=== PATIENT | male | born 1970 | race Caucasian/White ===

== ENCOUNTER → 2021-12-29 09:46 | Outpatient (BNVA) | payer OTHER, SELFPAY | PROVIDERS: Visit Provider Physician Assistant | DX: M54.50 Low back pain, unspecified (principal); Z91.81 History of falling | CPT/HCPCS: 72100; 99203 ==

== ENCOUNTER → 2022-01-12 14:34 | Outpatient (BNVA) | payer OTHER, SELFPAY | PROVIDERS: PCP Internal Medicine; Visit Provider Physician Assistant | DX: S39.012D Strain of muscle, fascia and tendon of lower back, subsequent encounter (principal); W18.30XD Fall on same level, unspecified, subsequent encounter | CPT/HCPCS: 99213 ==

== ENCOUNTER 2022-01-25 16:00 | Outpatient (RCR) | payer OTHER, SELFPAY ==
--- NOTE | 2022-01-08 16:54 | MHC.PT.EP ---
[facility] [place] Office [place] Office [place] Office [address] Adrienne Arteaga [address] [phone] F: [phone] F: [phone] F: [phone] F: [phone] Physical Therapy Plan of Care Date of Evaluation: Date of Surgery: Diagnosis: SI/ lumbar strain s/p fall. Assessment: Pt is a 51 y/o male referred to PT for eval and treat of SI/ lumbar strain s/p fall down stairs at work resulting in decreased tolerance for bending forward, AM activities d/t stiffness and pain, performing LE dressing secondary to decreased core strength, decreased trunk ROM as well as decreased posture, increased lumbar tissue tension, and pain. Pt is deemed an appropriate candidate to receive skilled PT in order to address his physical limitations to improve his functional ability. Frequency and Duration: The patient will be seen 2 x / wk x 3 wks. Short Term Goals: improve AM pain to < 2/10; initial: 4/10. initiate HEP. Mcfp Goals: I with HEP. Pt will report no longer painful with walking long distances. Improve core strength to > good (+), initial Good (-) Pt will reports his pain is at least mild and comes and goes; initial: moderate and comes and goes. Treatment Plan: Modalities to reduce pain, spasms and effusion. Manual therapy to restore motion and function. Therapeutic exercise to improve strength and flexibility. Neuromuscular re-education for posture and balance. Therapeutic activities to return to functional activities of daily living. Electronically signed by: Deangelo Paul, PT, DPT. Please sign and return to therapist. Thank you for your referral.
--- NOTE | 2022-01-26 16:37 | MHC.PT.DC ---
[facility] [place] Office [place] Office [place] Office [address] Mallika Arteaga [address] [phone] F: [phone] F: [phone] F: [phone] F: [phone] Physical Therapy Discharge Report Diagnosis: SI/ lumbar strain s/p fall. Date of Surgery: Date of Evaluation: 01/08/22 Date of Discharge: 01/26/22 Treatments to Date: 4 Cancellations to Date: No Shows to Date: Discharge Status: Improved Function Patient Elected to Stop Discharge Summary: Pt left his 4th session reporting he would like to be DC'd from care and walk in the [facility] for exercise. Electronically signed by: Deangelo Paul PT. Please sign and return to therapist. Thank you for your referral.
== END 2022-01-26 16:37 | disposition home or self-care (01) ==
LOC: HO.PTCHIC 16:00
PROVIDERS: PCP Internal Medicine; Visit Provider Physician Assistant
DX: M54.50 Low back pain, unspecified (principal); Z91.81 History of falling
CPT/HCPCS: 97110; 97140; 97161; 97164

== ENCOUNTER → 2023-01-10 13:48 | Outpatient (BNVA) | payer OTHER, SELFPAY | PROVIDERS: PCP Internal Medicine; Visit Provider Physician Assistant Medical | DX: S39.012A Strain of muscle, fascia and tendon of lower back, initial encounter (principal); X50.3XXA Overexertion from repetitive movements, initial encounter | CPT/HCPCS: 72110; 99203 ==

== ENCOUNTER → 2023-01-17 08:30 | Outpatient (BNVA) | payer OTHER, SELFPAY | PROVIDERS: PCP Internal Medicine; Visit Provider Physician Assistant Medical | DX: S39.012A Strain of muscle, fascia and tendon of lower back, initial encounter (principal); X50.3XXA Overexertion from repetitive movements, initial encounter | CPT/HCPCS: 99213 ==

== ENCOUNTER → 2023-01-28 14:09 | Outpatient (BNVA) | payer OTHER, SELFPAY | PROVIDERS: Visit Provider Physician Assistant Medical | DX: S39.012D Strain of muscle, fascia and tendon of lower back, subsequent encounter (principal); X58.XXXD Exposure to other specified factors, subsequent encounter; M54.16 Radiculopathy, lumbar region | CPT/HCPCS: 99213 ==

== ENCOUNTER → 2023-02-05 11:10 | Outpatient (BNVA) | payer OTHER, SELFPAY | PROVIDERS: Visit Provider Physician Assistant Medical | DX: M54.16 Radiculopathy, lumbar region (principal) | CPT/HCPCS: 99213 ==

== ENCOUNTER → 2023-02-14 13:26 | Outpatient (BNVA) | payer OTHER, SELFPAY | PROVIDERS: Visit Provider Physician Assistant Medical | DX: S39.012D Strain of muscle, fascia and tendon of lower back, subsequent encounter (principal); X50.3XXD Overexertion from repetitive movements, subsequent encounter; M54.16 Radiculopathy, lumbar region | CPT/HCPCS: 99213 ==

== ENCOUNTER 2023-03-12 15:00 | Outpatient (RCR) | payer OTHER, SELFPAY ==
--- NOTE | 2023-01-24 15:49 | MHC.PT.EP ---
[facility] [place] Office [place] Office [place] Office [address] Mallika Arteaga [address] [phone] F: [phone] F: [phone] F: [phone] F: [phone] Physical Therapy Plan of Care Date of Evaluation: Date of Surgery: n/a Diagnosis: lumbar strain with spasms Assessment: Patient is a 52 year old male presenting to PT with complaints of pain in his low back. Pt reports onset of pain began 2 weeks ago due to pulling a cart with 500 pounds at work. He presents today with impairments in pain, lumbar ROM, core strength, hip strength, posture, muscle tightness. Pt's current occupation is at [employer], with baseline physical activities including work, ADLs, bending, lifting. Pt expresses prison goal of returning to PLOF, and is motivated to work towards this in PT. Clinical presentation today is most consistent with signs and sx associated with low back pain with possible myofascial contribution and pt will benefit from skilled PT 2 week x 4 weeks to address the following problems and impairments noted upon evaluation: pain, lumbar ROM, hip strength, core strength, posture, muscle tightness. These problems limit the patient with the following functional activities: work, ADLs, bending, lifting. The prescribed treatment plan of care is medically necessary. Co-morbidities of DM were identified and taken into considerations of plan of care. Pt was educated on HEP, role of PT, prognosis, POC. Frequency and Duration: The patient will be seen 2 x week x 4 weeks Short Term Goals: Pt will demonstrate ability to move through lumbar ROM with min to no pain in 2 weeks. Pt will demonstrate improved hip strength MMT by 1/3 grade in 2 weeks for improved lumbopelvic stability. Pt will demonstrate less reports of tightness in his low back in 2 weeks for improved muscle tension. Store Warehouse Associate Goals: Pt will demonstrate improved Francisco score by 10% in 4 weeks for improved functional mobility. Pt will demonstrate ability to work a full day with min to no pain in 4 weeks for return to work at his PLOF. Pt will demonstrate ability to complete ADLs including bending and lifting with min to no pain in 4 weeks for return to PLOF. Treatment Plan: Modalities to reduce pain, spasms and effusion. Manual therapy to restore motion and function. Therapeutic exercise to improve strength and flexibility. Neuromuscular re-education for posture and balance. Therapeutic activities to return to functional activities of daily living. Electronically signed by: Patience Man, PT, DPT, ATC Please sign and return to therapist. Thank you for your referral.
--- NOTE | 2023-03-12 15:59 | MHC.PT.DC ---
[facility] [place] Office [place] Office [place] Office [address] Mallika Arteaga [address] [phone] F: [phone] F: [phone] F: [phone] F: [phone] Physical Therapy Discharge Report Diagnosis: lumbar strain with spasms Date of Surgery: n/a Date of Evaluation: 01/24/23 Date of Discharge: 03/12/23 Treatments to Date: 13 Cancellations to Date: 0 No Shows to Date: 0 Discharge Status: Recommend MD Follow-up Discharge Summary: 03/12/2023: Pt has made some improvements in pain since start of care but appears to have reached a plateau with skilled PT. Over the last several visits he has had no significant change in his functional status or pain levels. At this time max benefits of PT have been provided and skilled PT is no longer indicated at this time. He is waiting to see a specialist which I encouraged him to follow up to be sure this is scheduled for further management of his pain. In the mean time he is recommended to continue with HEP at home to maintain all gains. Electronically signed by: Patience Man, PT, DPT, ATC Please sign and return to therapist. Thank you for your referral.
== END 2023-03-12 16:01 | disposition home or self-care (01) ==
LOC: HO.PTCHIC 15:00
PROVIDERS: Visit Provider Physician Assistant Medical
DX: S39.012D Strain of muscle, fascia and tendon of lower back, subsequent encounter (principal); M62.830 Muscle spasm of back
CPT/HCPCS: 97110; 97140; 97161; 97164

== ENCOUNTER 2023-04-05 09:41 | Emergency (ER) | payer OTHER, SELFPAY ==
--- NOTE | 2023-04-05 09:44 | ED.SYNCOPE ---
HPI - Syncope General Chief Complaint: Syncope Stated Complaint: Syncopal episode per EMS Time Seen by Provider: 04/05/23 09:42 Source: EMS Mode of arrival: EMS Limitations: no limitations History of Present Illness HPI narrative: At work it was hot, got lightheaded and passed out. Normal EKG by EMS, no head strike, got 120cc of IV fluids. Patients prodrome was diaphoresis, sat down and passed out for a minute, did not strike head. complaint: loss of consciousness and felt faint Onset (ago): minute(s) -: second(s) Context: during exertion (light exertion) Related Data Previous Rx's Medication Instructions Recorded cyclobenzaprine 10 mg tablet 10 mg PO BEDTIME PRN muscle spasm 01/10/23 #10 tabs Allergies Allergy/AdvReac Type Severity Reaction Status Date / Time No Known Allergies Allergy Verified 04/05/23 09:49 Review of Systems Review of Systems: Yes all other systems are reviewed and are negative Neurologic: Denies Sensory deficit (Neuro) REPLACED BY [facility] Social History Social History Alcohol intake: current Alcohol intake frequency: holidays/special occasions only Smoked in Last 30 Days: No Use of substances other than those prescribed or required for medical reasons: Yes Substance Use Type: Marijuana Advance Directives: No Physical Exam Vital Signs: Vital Signs: Last Vital Signs Temp 98.2 F 04/05/23 13:48 Pulse 86 04/05/23 13:48 Resp 16 04/05/23 13:48 BP 125/80 04/05/23 13:48 Pulse Ox 96 04/05/23 13:48 O2 Del Method Room Air 04/05/23 13:48 BMI result Body Mass Index 40.9 Const: General: healthy appearing Nutritional Appearance: average body habitus Orientation/consciousness: oriented to person and patient oriented x3 Limitations: no limitations HEENT: Head: Yes normal to inspection Ears: external ears normal General nose exam: Normal external nose present Mouth: Normal oral and palatal mucosa present and oropharynx normal Throat: Yes posterior oropharynx normal Eyes: General: appearance normal, both eyes and all related structures Neck: Other: supple Neck: Yes normal visual inspection Chest: Chest palpation & inspection: normal inspection of the chest Resp: Auscultation: clear to auscultation bilaterally Cardio: Other: 3/6 MONO Jugular venous distension: no JVD Rate: regular rate Rhythm: regular rhythm GI: Inspection: Yes normal to inspection Palpation (GI): Soft to palpation, nontender and No hepatosplenomegaly present Auscultation: normal bowel sounds : General: Yes no CVA tenderness Back/Spine/Pelvis: Back: no CVA tenderness Skin: General skin exam: no rashes or lesions noted Neuro: General: oriented to person and patient oriented x3 Cranial nerves: Yes CN's II-XII intact bilaterally Motor exam (neuro): 5/5 motor strength present throughout Sensory Exam: No Sensory deficit (Neuro) Extrem: General: Yes normal to inspection Psych: Appearance: grossly normal Course Reevaluation(s) Reevaluation #1: patient with flat troponins, clearly no chest pain or shortness of breath prior to feeling lightheaded, looking well will dc home Time: 14:38 Medications Administered Discontinued Medications Generic Name Dose Route Start Last Admin Trade Name Freq PRN Reason Stop Dose Admin Sodium Chloride 250 mls @ 999 mls/hr 04/05/23 10:00 04/05/23 11:53 Ns IV 04/05/23 10:15 Infused .Q16M RAUL Infusion Medical Decision Making Differential Diagnosis Differential Diagnoses: The differential diagnosis associated with the presentation includes (syncope, vasovagal, arrhythmia, CAD, seizure were all considered) Admission/Observation Consideration of admission/observation: Escalation of care including admission/observation considered (52yo male with DM and high cholesterol was considered for admission upon arrival) Lab Data MDM Lab Attestation statement: I reviewed the patient's lab results. (elevated WBC probably from demargination from syncopal event no evidence of infection) 04/05/23 10:34 04/05/23 10:34 Labs: Lab Results 04/05/23 04/05/23 04/05/23 Range/Units 10:34 10:34 10:34 WBC 15.5 H (4.8-10.8) X10*3/uL RBC 5.29 (4.60-5.80) X10*6/uL Hgb 14.6 (14.0-18.0) g/dl Hct 44.2 (42.0-52.0) % MCV 83.6 (80.0-98.0) fL MCH 27.6 (27.0-33.0) pg MCHC 33.0 (31.0-36.0) g/dl RDW 13.3 (11.0-16.0) % Plt Count 153 L (160-400) X10*3/uL MPV 9.4 (9.4-12.4) fL Immature Gran % (Auto) 0.5 H (0.0-0.4) % Neut % (Auto) 87.5 H (45-73) % Lymph % (Auto) 3.6 L (20-40) % [place] % (Auto) 7.8 (2-11) % Eos % (Auto) 0.3 (0-4) % Baso % (Auto) 0.3 (0-2) % Lymph # (Auto) 0.6 L (1.2-4.9) X10*3/uL [place] # (Auto) 1.2 (0.1-1.2) X10*3/uL Eos # (Auto) 0.0 (0.0-0.4) X10*3/uL Baso # (Auto) 0.1 (0.0-0.2) X10*3/uL Abs Immat Gran (auto) 0.08 H (0.00-0.03) X10*3/uL Absolute Neuts (auto) 13.5 H (2.0-8.3) x10*3/uL Absolute Nucleated RBC 0.000 (0.0-0.012) X10*3/uL Nucleated RBC % (auto) 0.0 (0.0-0.2) /100WBC Sodium 139 (135-145) mmol/L Potassium 4.0 (3.3-5.1) mmol/L Chloride 104 (96-108) mmol/L Carbon Dioxide 23 (22-29) mmol/L Anion Gap 16 (12-20) BUN 14 (9-16) mg/dL Creatinine 1.05 (0.5-1.4) mg/dL Estim Creat Clear Calc 105.4 Estimated GFR > 60 Random Glucose 207 H (60-115) mg/dL Calcium 8.7 (8.4-10.2) mg/dL Troponin I High Sens 19.8 (<3.5-35.0) ng/L 04/05/23 Range/Units 13:49 WBC (4.8-10.8) X10*3/uL RBC (4.60-5.80) X10*6/uL Hgb (14.0-18.0) g/dl Hct (42.0-52.0) % MCV (80.0-98.0) fL MCH (27.0-33.0) pg MCHC (31.0-36.0) g/dl RDW (11.0-16.0) % Plt Count (160-400) X10*3/uL MPV (9.4-12.4) fL Immature Gran % (Auto) (0.0-0.4) % Neut % (Auto) (45-73) % Lymph % (Auto) (20-40) % [place] % (Auto) (2-11) % Eos % (Auto) (0-4) % Baso % (Auto) (0-2) % Lymph # (Auto) (1.2-4.9) X10*3/uL [place] # (Auto) (0.1-1.2) X10*3/uL Eos # (Auto) (0.0-0.4) X10*3/uL Baso # (Auto) (0.0-0.2) X10*3/uL Abs Immat Gran (auto) (0.00-0.03) X10*3/uL Absolute Neuts (auto) (2.0-8.3) x10*3/uL Absolute Nucleated RBC (0.0-0.012) X10*3/uL Nucleated RBC % (auto) (0.0-0.2) /100WBC Sodium (135-145) mmol/L Potassium (3.3-5.1) mmol/L Chloride (96-108) mmol/L Carbon Dioxide (22-29) mmol/L Anion Gap (12-20) BUN (9-16) mg/dL Creatinine (0.5-1.4) mg/dL Estim Creat Clear Calc Estimated GFR Random Glucose (60-115) mg/dL Calcium (8.4-10.2) mg/dL Troponin I High Sens 22.9 (<3.5-35.0) ng/L Independent Interpretation I performed an independent interpretation of an: EKG (sinus [address] or twave changes) Chronic Conditions Patient?s care impacted by: Diabetes and Hypertension Discharge Plan Discharge Clinical Impression: Syncope and collapse Patient Disposition: Home, Self-Care Instructions: Syncope (ED) Prescriptions: No Action cyclobenzaprine 10 mg tablet 10 mg PO BEDTIME PRN (Reason: muscle spasm) Qty: 10 0RF Referrals: Adrienne Macias CNP [Primary Care Provider] - 3 days
[2023-04-05 09:47] VITALS: BP 118/62; BP 123/79; PULSE 103; PULSE 90; RESP 16; TEMP 36.4; O2SAT 94; O2SAT 98; BMI 40.9
--- NOTE | 2023-04-05 09:49 | ECG_ITS ---
Test Reason : SYNCOPE Blood Pressure : / mmHG Vent. Rate : 100 BPM Atrial Rate : 100 BPM P-R Int : 146 ms QRS Dur : 090 ms QT Int : 362 ms P-R-T Axes : 021 -15 -09 degrees QTc Int : 466 ms Normal sinus rhythm Possible Left atrial enlargement Left ventricular hypertrophy ( R in aVL , [place] product , Romhilt-Perkins ) Abnormal ECG No previous ECGs available Referred By: Wilner Payne Electronically Signed By:LUIS WILKINSON
[2023-04-05 09:55] VITALS: O2SAT 94
[2023-04-05] MEDS: 0.9 % Sodium Chloride 250 ML 999 ML IV (09:59)
[2023-04-05 10:14] VITALS: BP 130/76; PULSE 99
[2023-04-05 10:17] VITALS: BP 130/83; PULSE 108
[2023-04-05 10:19] VITALS: BP 131/76; PULSE 109
[2023-04-05 10:38] LABS: MANUAL DIFF FLAG NO
[2023-04-05 10:41] LABS: Basophils Absolute Auto 0.1 X10*3/uL (0.0-0.2); Basophils Percent Auto 0.3 % (0-2); Eosinophils Percent Auto 0.3 % (0-4); Hematocrit 44.2 % (42.0-52.0); Hemoglobin 14.6 g/dl (14.0-18.0); Imm Gran Abs Auto 0.08 X10*3/uL (0.00-0.03); Imm Gran Pct Auto 0.5 % (0.0-0.4); Lymphocytes Absolute Auto 0.6 X10*3/uL (1.2-4.9); Lymphocytes Percent Auto 3.6 % (20-40); Mean Corpuscular Hemoglobin 27.6 pg (27.0-33.0); Mean Corpuscular Volume 83.6 fL (80.0-98.0); Mean Platelet Volume 9.4 fL (9.4-12.4); Monocytes Absolute Auto 1.2 X10*3/uL (0.1-1.2); Monocytes Percent Auto 7.8 % (2-11); Neutrophils Absolute Auto 13.5 x10*3/uL (2.0-8.3); Neutrophils Percent Auto 87.5 % (45-73); Platelet Count 153 X10*3/uL (160-400); Red Blood Count 5.29 X10*6/uL (4.60-5.80); Red Cell Distribution Width 13.3 % (11.0-16.0); White Blood Count 15.5 X10*3/uL (4.8-10.8)
[2023-04-05 10:54] LABS: Anion Gap 16 (12-20); Blood Urea Nitrogen 14 mg/dL (9-16); Calcium 8.7 mg/dL (8.4-10.2); Carbon Dioxide 23 mmol/L (22-29); Chloride 104 mmol/L (96-108); Creatinine Clr Calc Pharmacy 105.4; Estimated Glomerular Filt Rate > 60; Glucose Random 207 mg/dL (60-115); Sodium 139 mmol/L (135-145)
[2023-04-05 11:03] LABS: Troponin-I High Sensitivity 19.8 ng/L (<3.5-35.0)
[2023-04-05 13:48] VITALS: BP 125/80; PULSE 86; RESP 16; TEMP 36.8; O2SAT 96
[2023-04-05 14:17] LABS: Troponin-I High Sensitivity 22.9 ng/L (<3.5-35.0)
== END 2023-04-05 15:19 | disposition home or self-care (01) ==
PROVIDERS: Emergency Provider Emergency Medicine; PCP Nurse Practitioner Primary Care
DX: R55 Syncope and collapse (principal)
CPT/HCPCS: 36415; 80048; 84484; 85025; 93005; 96360; 96361; 99284; 99285

== ENCOUNTER → 2023-09-19 13:00 | Outpatient (BNVA) | payer OTHER, SELFPAY | PROVIDERS: PCP Nurse Practitioner Primary Care; Visit Provider Physician Assistant Medical | DX: M54.50 Low back pain, unspecified (principal) | CPT/HCPCS: 99213 ==

== ENCOUNTER → 2023-09-30 13:13 | Outpatient (BNVA) | payer OTHER, SELFPAY | PROVIDERS: PCP Nurse Practitioner Primary Care; Visit Provider Physician Assistant Medical | DX: S39.012D Strain of muscle, fascia and tendon of lower back, subsequent encounter (principal); X50.3XXD Overexertion from repetitive movements, subsequent encounter | CPT/HCPCS: 99213 ==

== ENCOUNTER 2023-10-02 13:18 | Outpatient (AMB) | payer OTHER, SELFPAY ==
--- NOTE | 2023-10-02 13:25 | A.OFFVIS_ITS ---
Intake Vital Signs 10/02/23 13:34 Height 5 ft 9 in Weight 270 lb BMI 39.9 BP 136/78 Blood Pressure Location Lt brachial Position Sitting Respiration 18 Pulse 83 Pulse Source Pulse Oximeter Pulse Oximetry (%) 97 Oxygen Delivery Method Room Air Intake Visit Reasons: Low Back Pain/CONFIRMED Intake Note: patient comes in for initial visit was referred by [facility] work connection. Allergies No Known Allergies Allergy (Verified 10/02/23 13:29) HPI HPI Comments History of Present Illness Details Adam is very pleasant 53 years old gentleman who presents in my office with complains on pain in the right side of his lower back with minimal radiation to the right buttock. 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 He reports that today his pain is 4/10. He is able to sleep normally he can not do activities of daily living he can take care of himself he in is function in normally he is working currently full-time but he reports that he is on light duties without lifting more than 10-12 or 20 lb. He reports that application of heat and cold as well as topical medications make his pain better and movements aggravate his pain. He reports that flexing spine backwards aggravates his pain more than flexing forward. He reports his pain in terms of tissue damage as jumping, flashing, shooting sensation. He was sent to physical therapy and he completed full course of physical therapy and he would need home exercise program. She reports no improvement with his pain. He went for MRI of the lumbar spine and results of MRI dictated as below. He never received any injections in the back. His past medical history significant for dizziness and fainting history of heart murmur and diabetes. His morbidly obese. He had no surgeries in the past. He denies smoking cigarettes drinking alcohol in moderation he drinks caffeinated beverages and he takes cannabis for improvement of sleep. [facility] Social History Alcohol intake: current Alcohol intake frequency: holidays/special occasions only Substance Use Type: Marijuana Review of Systems Const All systems reviewed & are unremarkable except as noted in HPI and below ENT Reports Normal hearing present Card Reports no additional complaints Resp Reports no additional complaints GI Reports no additional complaints Reports no additional complaints Musc Reports as per HPI Neuro Reports Normal hearing present, Denies Abnormal speech present, Denies confusion and Denies Sensory deficit (Neuro) Psych Denies confusion Endo Reports as per HPI Aller/Immun Reports no additional complaints Physical Exam Vital Signs: Last Vital Signs Pulse 83 10/02/23 13:34 Resp 18 10/02/23 13:34 BP 136/78 10/02/23 13:34 Pulse Ox 97 10/02/23 13:34 Oxygen Delivery Method Room Air 10/02/23 13:34 BMI result Body Mass Index 39.9 Const General: no acute distress; No confusion Nutritional Appearance: obese morbidly obese Orientation/consciousness: patient oriented x3 and No confusion Eyes General: appearance normal, both eyes and all related structures Pupils: Equal, round and reactive pupils present EOM: EOMs intact bilaterally Neck Neck: Yes full ROM Chest Chest palpation & inspection: normal inspection of the chest Resp Effort & Inspection: normal respiratory effort, able to speak in complete sentences, normal respiratory pattern, no audible wheezes and no cough Cardio Jugular venous distension: no JVD GI Inspection: Yes normal to inspection Back/Spine/Pelvis Other: Both flexing backwards and flexing forward aggravate his pain. Tenderness of palpation paraspinal spinal region of the lowest lumbar spine. He reports mobility limitation in the lumbar spine. Reports stiffness in the lumbar spine. Valsalva maneuver does not aggravate his pain. SLR is negative for pain increase. Greg test may be positive on the right however neither pelvic compression test pelvis destruction test Stinchfield test or Gaenslen test negative for pain increase. Loading test is positive mostly on the right. He denies incontinence with urine and/or stool. He denies pelvic organ dysfunction. Neuro General: patient oriented x3, gait normal and No confusion Cranial nerves: Yes CN's II-XII intact bilaterally, Yes Equal, round and reactive pupils present, Yes Normal hearing present and Yes Ability to bilaterally elevate shoulders present Speech: No Abnormal speech present Gait exam (Neuro): Normal gait present Motor exam (neuro): 5/5 motor strength present throughout Sensory Exam: No Sensory deficit (Neuro) Extrem General: No pedal edema Psych Speech and movement: Normal speech and movement present Affect: normal affect Attitude: cooperative Thought process: Normal thought process present Thought content: Normal thought content present Insight: Good insight present (Psych) Judgement: Good judgement present (Psych) Results Reviewed Results Reviewed: MRI of the lumbar spine [facility] 02/08/2023. Findings: There is transitional anatomy L5 appears partially sacralized on the right. Alignment is normal. Vertebral body heights are preserved. Degenerative endplate osteophytes are present at multiple levels as well as minimal Modic type 1 and type 2 signal changes at the anterior aspect of the L1- L2 endplates. There is disc desiccation and mild loss of intervertebral disc height at L3-L4 and L4-5. Rudimentary disc at L5-S1. Multilevel facet arthropathy. Conus the conus is normal in signal and contour with normal level of termination at L1. Paraspinal tissues are unremarkable. L1-L2 no significant spinal canal or neural foraminal stenosis L2-L3 no single canal or neural foraminal stenosis. L3-L4 deformities bulge and small central protrusion component. Facet arthropathy. Mild spinal canal narrowing. Mild bilateral neural foraminal narrowing. L4-5 disc bulge and facet arthropathy no significant central canal stenosis mild bilateral neural foraminal narrowing. L5-S1: Left-sided facet arthropathy. No significant canal stenosis or neural foraminal narrowing Assessment & Plan Assessment & Plan (1) Spondylosis of lumbar region without myelopathy or radiculopathy: Code(s): M47.816 - Spondylosis without myelopathy or radiculopathy, lumbar region (2) Chronic pain syndrome: Code(s): G89.4 - Chronic pain syndrome Plan It seem to me that most significant feature of this patient's pathology is facet joint arthropathy. I offered him diagnostic medial branch block. Considering his transitional anatomy I will do L2-L3 and L4 medial branches block on the right. With proper report of pain relief we can offer him more definitive ways of treatment of his back pain. Patient Instructions: I here by testify that I spent 48 minutes in conversation with this patient as well as planning his care evaluating his previous records and diagnostic studies planning future injections and organizing this note. Coding Level of Care Code New Pt Level 4 (86638) Diagnoses Spondylosis of lumbar region without myelopathy or radiculopathy M47.816 Chronic pain syndrome G89.4
[2023-10-02 13:34] VITALS: BP 136/78; PULSE 83; RESP 18; O2SAT 97; BMI 39.9
== END 2023-10-02 14:18 | disposition home or self-care (01) ==
PROVIDERS: PCP Nurse Practitioner Primary Care; Visit Provider Anesthesiology
DX: M47.816 Spondylosis without myelopathy or radiculopathy, lumbar region (principal); G89.4 Chronic pain syndrome
CPT/HCPCS: 99204

== ENCOUNTER → 2023-10-02 13:18 | Outpatient (BNVA) | payer OTHER, SELFPAY | PROVIDERS: PCP Nurse Practitioner Primary Care; Visit Provider Anesthesiology | DX: M47.816 Spondylosis without myelopathy or radiculopathy, lumbar region (principal); G89.4 Chronic pain syndrome | CPT/HCPCS: 99202 ==

== ENCOUNTER → 2023-10-23 13:12 | Outpatient (BNVA) | payer OTHER, SELFPAY | PROVIDERS: PCP Nurse Practitioner Primary Care; Visit Provider Physician Assistant Medical | DX: M51.27 Other intervertebral disc displacement, lumbosacral region (principal) | CPT/HCPCS: 99213 ==

== ENCOUNTER 2023-11-05 06:10 | Outpatient (REF) | payer OTHER, SELFPAY ==
--- NOTE | ~2023-11-05 | FL_ITS ---
EXAMINATION: XR FLUOROSCOPY WITH IMAGES CLINICAL INFORMATION: Spondylosis without myelopathy or radiculopathy, lumbar region. COMPARISON: None available. TECHNIQUE: Fluoroscopy Supervised By: Dr. Horacio Streeter. Fluoroscopy Time: 0.4 minutes. Cumulative Dose: 19.3 mGy. DAP: 0.292 Gycm2. Images: 3. FINDINGS: Images demonstrate needle placement and contrast injection adjacent to the right lateral L3, L4 and L5 vertebrae. FL/FL guidance in treatment room IMPRESSION: Fluoroscopic guidance for pain management procedure.
== END 2023-11-05 06:11 | disposition home or self-care (01) ==
LOC: CF 06:10
PROVIDERS: Visit Provider Anesthesiology
DX: M47.816 Spondylosis without myelopathy or radiculopathy, lumbar region (principal); G89.4 Chronic pain syndrome
CPT/HCPCS: 64493; 64494; J2795; Q9967

== ENCOUNTER 2023-11-05 12:57 | Outpatient (AMB) | payer OTHER, SELFPAY ==
--- NOTE | 2023-11-05 13:05 | A.OFFVIS_ITS ---
Intake Vital Signs 11/05/23 13:59 11/05/23 14:01 Height 5 ft 9 in 5 ft 9 in Weight 270 lb 270 lb BMI 39.9 39.9 BP 136/84 122/80 Blood Pressure Location Lt brachial Lt brachial Position Sitting Sitting Respiration 18 18 Pulse 93 90 Pulse Source Pulse Oximeter Pulse Oximeter Pulse Oximetry (%) 96 96 Oxygen Delivery Method Room Air Room Air Comment pre-op post-op Intake Visit Reasons: R DX L2-L3-L4 MBB/LOCAL Allergies No Known Allergies Allergy (Verified 11/05/23 14:02) PFSH Social History Alcohol intake: current Alcohol intake frequency: holidays/special occasions only Substance Use Type: Marijuana Physical Exam Vital Signs: Last Vital Signs Pulse 90 11/05/23 14:01 Resp 18 11/05/23 14:01 BP 122/80 11/05/23 14:01 Pulse Ox 96 11/05/23 14:01 Oxygen Delivery Method Room Air 11/05/23 14:01 BMI result Body Mass Index 39.9 Assessment & Plan Assessment & Plan (1) Spondylosis of lumbar region without myelopathy or radiculopathy: Code(s): M47.816 - Spondylosis without myelopathy or radiculopathy, lumbar region Plan: Diagnostic medial branch block L2-L3 L4 on the right. ? ?Informed consent was explained to the patient. All questions were explained and? answered.? The patient was taken inside the operating room where she was positioned prone on the operating table. Time-out was performed delineating correct site, side, the nature of the procedure, patient's allergy, . All operating room staff was participating in OR time-out procedure. ? ? The lower back was prepped with ChloraPrep and draped with sterile towels.? C- arm was brought over the operating field and sq picture of L3, L4-, L5 vertebra delineated on the screen.? Point of interest were delineated as confluence of superior articular process of L3, L4 and L5 vertebra on the right with corresponding transverse processes .? The projection of the point of interest to the skin were injected with the small amount of local anesthetic lidocaine 2% 1- 1.5 cc.? After that 22 gauge 3.5 inch spinal needle was driven sequentially to the points of interest in tunnel vision fashion. After needles gently contacted the bone at the point of interests the needle was injected with small amount of the contrast.? The injection of the contrast did not demonstrate any intravascular or intrathecal spread of the contrast.? After that injection of the? ropivacaine 0.5%-1cc was performed at each needle location.??after that the needles were removed and Bandaids were applied. ? Upon completion of the injections? needle was? removed and sterile Band-Aids were applied.? The patient tolerated procedure very well. (2) Chronic pain syndrome: Code(s): G89.4 - Chronic pain syndrome Plan It seem to me that most significant feature of this patient's pathology is facet joint arthropathy. I offered him diagnostic medial branch block. Considering his transitional anatomy I will do L2-L3 and L4 medial branches block on the right. With proper report of pain relief we can offer him more definitive ways of treatment of his back pain. Orders: Orders FL guidance in treatment room 11/05/23 M47.816 - Spondylosis without myelopathy or radiculopathy, lumbar region Coding Level of Care Code Procedure Only Diagnoses Spondylosis of lumbar region without myelopathy or radiculopathy M47.816 Chronic pain syndrome G89.4
[2023-11-05 13:59] VITALS: BP 136/84; PULSE 93; RESP 18; O2SAT 96; BMI 39.9
[2023-11-05 14:01] VITALS: BP 122/80; PULSE 90; RESP 18; O2SAT 96; BMI 39.9
== END 2023-11-05 13:46 | disposition home or self-care (01) ==
LOC: HO.PMCPRC 12:57
PROVIDERS: PCP Nurse Practitioner Primary Care; Visit Provider Anesthesiology
DX: M47.816 Spondylosis without myelopathy or radiculopathy, lumbar region (principal); G89.4 Chronic pain syndrome
CPT/HCPCS: 64493; 64494

== ENCOUNTER 2023-11-07 09:38 | Outpatient (AMB) | payer OTHER, SELFPAY ==
--- NOTE | 2023-11-07 09:41 | MHC.OFFVIS ---
Intake Vital Signs 11/07/23 09:47 Height 5 ft 9 in Weight 276 lb 4 oz BMI 40.8 BP 132/76 Blood Pressure Location Lt brachial Position Sitting Respiration 18 Pulse 89 Pulse Source Pulse Oximeter Pulse Oximetry (%) 97 Oxygen Delivery Method Room Air Intake Visit Reasons: R DX L2-L3-L4 MBB 11/05/23/confirmed Allergies No Known Allergies Allergy (Verified 11/07/23 09:47) HPI HPI Comments History of Present Illness Details Adam is back in my office after diagnostic medial branch block L2-L3 L4 on the right to treat spondylosis of lumbar spine. Before the procedure he had pain 5/10. After the procedure he had pain 1/10 to 2/10 maximum. He performed most painful maneuvers which usually aggravates his pain. He felt only numbness in his back and not severe pain. He was walking picking up heavy stuff and performing ladder climbing with great results. She still feels some pain relief at this time 2 days after the procedure. He reported that he had 5 hours of almost complete pain relief immediately after the procedure. It corresponds well to the time ropivacaine local anesthetic which was injected into his back longevity of action. Prolonged and difficult discussion ensued today to discuss options of the treatment. I carefully explained to the patient radiofrequency ablation of the injected medial branches on the right. I also explained to him Sprint PNS ambulation to treat his pain. He was asking me questions whether not this is ultimate solution of his problem. I told him that the ultimate solution for his problem could be aggressive physical therapy and home exercise program, as well as I aerobic exercise, as well as diet and losing weight. The patient is not sure if he has enough of that time of work to participate in Sprint PNS. He is not sure if he is willing to go for RFA procedure. He will think about it and he will give me a call. If he wants to take physical therapy option I will order physical therapy. He requested me to write a letter to his a job in explanation of what time he needs off of work. Prior: complains on pain in the right side of his lower back with minimal radiation to the right buttock. 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 He reports that today his pain is 4/10. He is able to sleep normally he can not do activities of daily living he can take care of himself he in is function in normally he is working currently full-time but he reports that he is on light duties without lifting more than 10-12 or 20 lb. He reports that application of heat and cold as well as topical medications make his pain better and movements aggravate his pain. He reports that flexing spine backwards aggravates his pain more than flexing forward. She reports no improvement with his pain. He went for MRI of the lumbar spine and results of MRI dictated as below. He never received any injections in the back. His past medical history significant for dizziness and fainting history of heart murmur and diabetes. His morbidly obese. He had no surgeries in the past. He denies smoking cigarettes drinking alcohol in moderation he drinks caffeinated beverages and he takes cannabis for improvement of sleep. [facility] Social History Alcohol intake: current Alcohol intake frequency: holidays/special occasions only Substance Use Type: Marijuana Review of Systems Const All systems reviewed & are unremarkable except as noted in HPI and below ENT Reports Normal hearing present Neuro Reports Normal hearing present, Denies Abnormal speech present, Denies confusion and Denies Sensory deficit (Neuro) Psych Denies confusion Physical Exam Vital Signs: Last Vital Signs Pulse 89 11/07/23 09:47 Resp 18 11/07/23 09:47 BP 132/76 11/07/23 09:47 Pulse Ox 97 11/07/23 09:47 Oxygen Delivery Method Room Air 11/07/23 09:47 BMI result Body Mass Index 40.8 Const General: no acute distress; No confusion Nutritional Appearance: obese morbidly obese Orientation/consciousness: patient oriented x3 and No confusion Eyes General: appearance normal, both eyes and all related structures Pupils: Equal, round and reactive pupils present EOM: EOMs intact bilaterally Neck Neck: Yes full ROM Chest Chest palpation & inspection: normal inspection of the chest Resp Effort & Inspection: normal respiratory effort, able to speak in complete sentences, normal respiratory pattern, no audible wheezes and no cough Cardio Jugular venous distension: no JVD GI Inspection: Yes normal to inspection Back/Spine/Pelvis Other: Both flexing backwards and flexing forward aggravate his pain. Tenderness of palpation paraspinal spinal region of the lowest lumbar spine. He reports mobility limitation in the lumbar spine. Reports stiffness in the lumbar spine. Valsalva maneuver does not aggravate his pain. SLR is negative for pain increase. Greg test may be positive on the right however neither pelvic compression test pelvis destruction test Stinchfield test or Gaenslen test negative for pain increase. Loading test is positive mostly on the right. He denies incontinence with urine and/or stool. He denies pelvic organ dysfunction. Neuro General: patient oriented x3, gait normal and No confusion Cranial nerves: Yes CN's II-XII intact bilaterally, Yes Equal, round and reactive pupils present, Yes Normal hearing present and Yes Ability to bilaterally elevate shoulders present Speech: No Abnormal speech present Gait exam (Neuro): Normal gait present Motor exam (neuro): 5/5 motor strength present throughout Sensory Exam: No Sensory deficit (Neuro) Extrem General: No pedal edema Psych Speech and movement: Normal speech and movement present Affect: normal affect Attitude: cooperative Thought process: Normal thought process present Thought content: Normal thought content present Insight: Good insight present (Psych) Judgement: Good judgement present (Psych) Results Reviewed Results Reviewed: MRI of the lumbar spine [facility] 02/08/2023. Findings: There is transitional anatomy L5 appears partially sacralized on the right. Alignment is normal. Vertebral body heights are preserved. Degenerative endplate osteophytes are present at multiple levels as well as minimal Modic type 1 and type 2 signal changes at the anterior aspect of the L1-L2 endplates. There is disc desiccation and mild loss of intervertebral disc height at L3-L4 and L4-5. Rudimentary disc at L5-S1. Multilevel facet arthropathy. Conus the conus is normal in signal and contour with normal level of termination at L1. Paraspinal tissues are unremarkable. L1-L2 no significant spinal canal or neural foraminal stenosis L2-L3 no single canal or neural foraminal stenosis. L3-L4 deformities bulge and small central protrusion component. Facet arthropathy. Mild spinal canal narrowing. Mild bilateral neural foraminal narrowing. L4-5 disc bulge and facet arthropathy no significant central canal stenosis mild bilateral neural foraminal narrowing. L5-S1: Left-sided facet arthropathy. No significant canal stenosis or neural foraminal narrowing Assessment & Plan Assessment & Plan (1) Spondylosis of lumbar region without myelopathy or radiculopathy: Code(s): M47.816 - Spondylosis without myelopathy or radiculopathy, lumbar region (2) Chronic pain syndrome: Code(s): G89.4 - Chronic pain syndrome Plan On the MRI patient has Modic type 1 changes but it is only at L1 and L2 vertebra as. I do not think that this is good pain generator. Performance of the medial branch block L2-L3 L4 on the right resulted in an significant pain relief which could be indicative that spondylosis of the lumbar spine is actual pain generator for this patient. Prolonged and difficult conversation describing options of his treatment was held today. The patient was given options of RFA L2-L3 L4 on the right versus PNS L3 possible for possible L2 on the right sprint versus physical therapy aerobic exercises and diet lose weight. Patient reported that he will think about it. He will give us a call about his decision. We will give him a letter to his work with explanation of his options. Patient Instructions: I here by testify that I spent 35 minutes in conversation with this patient as well as evaluating his prior records and prior diagnostic studies as well as planning his care and organizing this note. Coding Level of Care Code Est Pt Level 4 (86739) Diagnoses Spondylosis of lumbar region without myelopathy or radiculopathy M47.816 Chronic pain syndrome G89.4
[2023-11-07 09:47] VITALS: BP 132/76; PULSE 89; RESP 18; O2SAT 97; BMI 40.8
== END 2023-11-07 10:13 | disposition home or self-care (01) ==
PROVIDERS: PCP Nurse Practitioner Primary Care; Visit Provider Anesthesiology
DX: G89.4 Chronic pain syndrome (principal); M47.816 Spondylosis without myelopathy or radiculopathy, lumbar region
CPT/HCPCS: 99214

== ENCOUNTER → 2023-11-07 09:38 | Outpatient (BNVA) | payer OTHER, SELFPAY | PROVIDERS: PCP Nurse Practitioner Primary Care; Visit Provider Anesthesiology | DX: G89.4 Chronic pain syndrome (principal); M47.816 Spondylosis without myelopathy or radiculopathy, lumbar region; Z98.890 Other specified postprocedural states | CPT/HCPCS: 99212 ==

== ENCOUNTER → 2023-11-13 13:39 | Outpatient (BNVA) | payer OTHER, SELFPAY | PROVIDERS: PCP Nurse Practitioner Primary Care; Visit Provider Physician Assistant Medical | DX: M51.16 Intervertebral disc disorders with radiculopathy, lumbar region (principal) | CPT/HCPCS: 99213 ==

== ENCOUNTER → 2023-12-18 11:17 | Outpatient (BNVA) | payer OTHER, SELFPAY | PROVIDERS: PCP Nurse Practitioner Primary Care; Visit Provider Physician Assistant Medical | DX: M51.16 Intervertebral disc disorders with radiculopathy, lumbar region (principal) | CPT/HCPCS: 99213 ==

== ENCOUNTER 2024-05-14 09:53 | Outpatient (AMB) | payer OTHER, SELFPAY ==
[2024-05-14 10:00] VITALS: BP 130/76; PULSE 76; TEMP 36.6
--- NOTE | 2024-05-14 10:00 | AM.OFFWIN_ITS ---
Intake Vital Signs 05/14/24 10:00 Height 5 ft 9 in BP 130/76 Blood Pressure Location Rt brachial Position Sitting Pulse 76 Pulse Source Pulse Oximeter Temp 97.9 F Temp Source Oral Intake Visit Reasons: [employer] Diff breathing, dizzy, hard to take in breaths Patient Tobacco Use Status: Never used Tobacco Allergies No Known Allergies Allergy (Verified 05/14/24 10:04) Do you need a note to return to daycare/school/sports/work: No HPI HPI Comments History of Present Illness Details Patient is a 53-year-old male complaining of the inability to take a deep breath. He states this has been a chronic issue going on for years and his former primary care doctor told him it was due to him having COVID. He states it is getting worse right now. He also states he has periods of dizziness that resolve on their own without any intervention. He admits to some head congestion and a bit of a sore throat. He denies any fevers or cough. He also notes that he has atrial fibrillation and is having an ablation on June 03. He states he has been taking all of his medications for his atrial fibrillation on a daily basis. He denies ever being diagnosed with any lung disease. 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 [facility] Social History Alcohol intake: current Alcohol intake frequency: holidays/special occasions only Patient Tobacco Use Status: Never used Tobacco Substance Use Type: Marijuana Review of Systems Const All systems reviewed & are unremarkable except as noted in HPI and below Physical Exam Vital Signs: Last Vital Signs Temp 97.9 F 05/14/24 10:00 Pulse 76 05/14/24 10:00 BP 130/76 05/14/24 10:00 Const General: cooperative, healthy appearing, comfortable, no acute distress and well developed Orientation/consciousness: patient oriented x3 Limitations: no limitations HEENT Head: Yes normal to inspection Ears: unable to visualize TM bilaterally (Blocked with cerumen; once cleared, TMs are normal bilaterally) General nose exam: Normal external nose present and Normal nares present Face and sinus: Yes normal facial exam and Yes sinuses nontender Throat: Yes posterior oropharynx abnormal (Slight erythema) Eyes General: appearance normal, both eyes and all related structures Neck Neck: Yes normal visual inspection and Yes full ROM Resp Effort & Inspection: normal respiratory effort and able to speak in complete sentences Auscultation: clear to auscultation bilaterally Cardio Rate: regular rate Rhythm: regular rhythm Heart sounds: normal S1 and S2 GI Inspection: Yes normal to inspection Palpation (GI): Soft to palpation and nontender Skin General skin exam: no rashes or lesions noted Neuro General: patient oriented x3 Extrem General: Yes normal to inspection Office Procedures Cerumen Removal Details: Attempted to clear right ear but unable to From which ear canal was the cerumen removed: left Removal: otoscope w/curette Notes: patient tolerated procedure well, no complications and ear canal clear (left ear) [id number] Wax Removal by Spoon/Curette Assessment & Plan Assessment & Plan (1) Shortness of breath: Code(s): R06.02 - Shortness of breath Plan: Will get chest x-ray but likely will be negative, sent inhaler to pharmacy and recommended if the inhaler helps that he should follow up with his PCP and perhaps get some pulmonary function tests. With his job, he is constantly expo sed to chemicals on a daily basis for many years. Did educate patient on how to check his heart rate and if he feels dizzy, he should check his heart rate and call 911, this could be likely due to his atrial fibrillation and would require immediate medical attention. (2) Impacted cerumen of both ears: Code(s): H61.23 - Impacted cerumen, bilateral Plan: Able to remove cerumen in the left ear, unable to remove it in the right ear, educated patient on using Debrox drops Plan See above Orders: Orders XR chest 2V Today R06.02 - Shortness of breath Medications: New albuterol sulfate 90 mcg/actuation 2 puffs inhalation Q6H PRN 8.5 grams 0RF shortness of breath or wheezing Coding Level of Care Code Est Pt Level 4 (21036) Diagnoses Shortness of breath R06.02 Impacted cerumen of both ears H61.23 CPT Codes Office Procedure - CPT: 02947-Rmm Wax Removal by Spoon/Curette ([id number])
== END 2024-05-14 11:01 | disposition home or self-care (01) ==
PROVIDERS: PCP Nurse Practitioner Primary Care; Visit Provider Physician Assistant
DX: H61.23 Impacted cerumen, bilateral (principal)
CPT/HCPCS: 69210; 99214

== ENCOUNTER 2024-05-14 10:50 | Outpatient (REF) | payer OTHER, SELFPAY ==
--- NOTE | ~2024-05-14 | XR_ITS ---
EXAMINATION: XR CHEST CLINICAL INFORMATION: Shortness of breath COMPARISON: None available. TECHNIQUE: 2 views of the chest were obtained. FINDINGS: Heart size upper limits of normal. There is no evidence of gross CHF. No consolidations or lung masses. No pleural effusions are seen. There is bronchial thickening present with some reticular nodular densities more prominent at the lung bases. Degenerative changes are present spine. XR/XR chest 2V IMPRESSION: Bronchial thickening with reticular nodular densities at the lung bases. No focal consolidation.
== END 2024-05-14 10:51 | disposition home or self-care (01) ==
LOC: HO.HMGCX 10:50
PROVIDERS: PCP Internal Medicine; Visit Provider Physician Assistant
DX: R06.02 Shortness of breath (principal)
CPT/HCPCS: 71046

== ENCOUNTER 2024-05-25 08:21 | Inpatient (IN) | payer OTHER, SELFPAY ==
[2024-05-25] VITALS (24 sets, daily range): BP systolic 93–132; BP diastolic 51–95; PULSE 68–159; RESP 14–26; TEMP 36.2–36.7; O2SAT 88–94; BMI 38.3
--- NOTE | 2024-05-25 | ECG_ITS ---
Test Reason : cp Blood Pressure : / mmHG Vent. Rate : 156 BPM Atrial Rate : 326 BPM P-R Int : 000 ms QRS Dur : 092 ms QT Int : 326 ms P-R-T Axes : 000 056 249 degrees QTc Int : 525 ms Atrial flutter with variable A-V block Moderate voltage criteria for LVH, may be normal variant ( Sokolow-De Luna , Crescent product ) Abnormal ECG When compared with ECG of 25-MAY-2024 08:34, Atrial flutter has replaced Sinus rhythm Vent. rate has increased BY 60 BPM Referred By: Luis Wilkinson Electronically Signed By:LUIS WILKINSON
--- NOTE | ~2024-05-25 | XR_ITS ---
EXAMINATION: XR CHEST CLINICAL INFORMATION: Chest pain, dyspnea COMPARISON: Chest x-ray on 05/14/2024 TECHNIQUE: 2 views of the chest were obtained. FINDINGS: pulmonary vascularity. LUNGS: Bilateral patchy perihilar infiltrates are present. Diffuse vascular and interstitial prominence is seen in bilateral lungs. Asymmetric density effacing the left lateral and posterior costophrenic angles is seen consistent with left pleural effusion. No pneumothorax is seen. BONES: Bony skeleton is intact. XR/XR chest 2V IMPRESSION: 1. Interval development of congestive heart failure, pulmonary edema pattern superimposed on interstitial edema. 2. Interval development of small Left pleural effusion.
--- NOTE | ~2024-05-25 | CT_ITS ---
EXAMINATION: CT CHEST WITHOUT CONTRAST CLINICAL INFORMATION: Dyspnea and hypoxia COMPARISON: Chest radiograph yesterday: Interval development of congestive heart failure, pulmonary edema pattern superimposed on interstitial edema. Interval development of small Left pleural effusion. TECHNIQUE: Multidetector volumetric CT imaging of the chest was done. Axial MIP volume rendering provided. Sagittal and coronal reformatted images were obtained. This CT examination was performed using dose optimization techniques as appropriate, variously including the following: *Automated exposure control *Adjustment of mA and/or kV according to patient size (this includes techniques or standardized protocols for targeted exams where dose is matched to indication/reason for exam; i.e. extremities or head) *Use of iterative reconstruction technique DLP: 3 7 mGy-cm FINDINGS: LUNGS AND PLEURA: There are small to moderate sized bilateral pleural effusions present with bibasilar atelectasis. There is diffuse bronchial wall thickening and interstitial prominence. Brittany B lines are present. Some mild perihilar groundglass infiltrates are present, left significantly greater than the right. MEDIASTINUM: Mild cardiac enlargement CORONARY ARTERY CALCIFICATION: Marked AXILLA: No lymphadenopathy. UPPER ABDOMEN: Unremarkable. OSSEOUS STRUCTURES: Unremarkable. CT/CT chest wo IV con IMPRESSION: Findings are consistent with CHF with interstitial edema and bilateral pleural effusions. Fleischner guidelines were followed.
--- NOTE | 2024-05-25 08:32 | ECG_ITS ---
Test Reason : CHESTPAIN Blood Pressure : / mmHG Vent. Rate : 096 BPM Atrial Rate : 096 BPM P-R Int : 144 ms QRS Dur : 092 ms QT Int : 000 ms P-R-T Axes : 020 039 049 degrees QTc Int : 000 ms Sinus rhythm Premature supraventricular complexes Moderate voltage criteria for LVH, may be normal variant ( Sokolow-De Luna , [place] product ) Abnormal ECG When compared with ECG of 05-APR-2023 10:23, Criteria for Inferior infarct are no longer Present T wave inversion no longer evident in Inferior leads Nonspecific T wave abnormality now evident in Lateral leads Referred By: Generic ED Physician Electronically Signed By:LUIS WILKINSON
[2024-05-25 08:49] LABS: MANUAL DIFF FLAG NO
[2024-05-25 08:51] LABS: Basophils Absolute Auto 0.1 X10*3/uL (0.0-0.2); Basophils Percent Auto 0.5 % (0-2); Eosinophils Absolute Auto 0.2 X10*3/uL (0.0-0.4); Eosinophils Percent Auto 1.8 % (0-4); Hematocrit 48.7 % (42.0-52.0); Imm Gran Abs Auto 0.03 X10*3/uL (0.00-0.03); Imm Gran Pct Auto 0.3 % (0.0-0.4); Lymphocytes Absolute Auto 0.9 X10*3/uL (1.2-4.9); Lymphocytes Percent Auto 9.7 % (20-40); Mean Corpuscular HGB Conc 32.9 g/dl (31.0-36.0); Mean Corpuscular Hemoglobin 28.3 pg (27.0-33.0); Mean Platelet Volume 9.7 fL (9.4-12.4); Monocytes Absolute Auto 0.7 X10*3/uL (0.1-1.2); Monocytes Percent Auto 7.4 % (2-11); Neutrophils Absolute Auto 7.7 x10*3/uL (2.0-8.3); Neutrophils Percent Auto 80.3 % (45-73); Platelet Count 185 X10*3/uL (160-400); Red Blood Count 5.66 X10*6/uL (4.60-5.80); White Blood Count 9.6 X10*3/uL (4.8-10.8)
[2024-05-25 09:11] LABS: Alanine Aminotransferase 40 U/L (0-40); Alkaline Phosphatase 54 U/L (39-117); Anion Gap 14 (12-20); Aspartate Amino Transferase 29 U/L (5-37); Bilirubin Total 0.9 mg/dL (0.0-1.0); Blood Urea Nitrogen 18 mg/dL (9-16); Carbon Dioxide 19 mmol/L (22-29); Chloride 113 mmol/L (96-108); Creatinine Clr Calc Pharmacy 114.7; Estimated Glomerular Filt Rate > 60; Glucose Random 177 mg/dL (60-115); Potassium 4.3 mmol/L (3.3-5.1); Sodium 142 mmol/L (135-145); Total Protein 6.5 g/dL (6.5-8.0)
[2024-05-25 09:35] LABS: Influenza A PCR NEGATIVE (Negative); Influenza B PCR NEGATIVE (Negative); Resp Syncy Virus RNA Qual PCR NEGATIVE (Negative); SARS COV2 PCR INHOUSE NEGATIVE (Negative)
[2024-05-25 11:44] LABS: IDNOW Serial# 08D9AD1C; Strep A Nucleic Acid Negative (Negative)
--- NOTE | 2024-05-25 11:45 | ED.SOB ---
HPI - SOB/Dyspnea General Chief Complaint: Dyspnea Stated Complaint: diff breathing Time Seen by Provider: 05/25/24 11:20 Source: patient Mode of arrival: ambulatory Limitations: no limitations History of Present Illness ED Provider: Ziggy MOYER HPI Narrative: This is a 54-year-old male history of afib, htn, dm, chronic pain syndrome, impacted cerumen, shortness of breath, spondylosis of lumbar region without myelopathy or radiculopathy presenting to the emergency department for evaluation of shortness of breath for months, he reports these symptoms have been acutely worsening over the past week or so. He was seen at the walk-in clinic where he was given an inhaler, he saw his PCP who did some pulmonary test, patient states he did very poorly on those test. He reports he was advised to come in with any new or worsening symptoms. Patient denies associated chest pain, fevers, chills, nausea, vomiting, abdominal pain, cough, lower extremity swelling, recent travel, smoking history. Related Data Home Medications ?Medication ?Instructions ?Recorded ?Confirmed atorvastatin 40 mg tablet 40 mg PO DAILY 10/02/23 empagliflozin 10 mg tablet 10 mg PO DAILY 10/02/23 (Jardiance) insulin glargine 100 unit/mL (3 67 unit subcut DAILY 10/02/23 mL) subcutaneous pen (Lantus Solostar U-100 Insulin) losartan 50 mg-hydrochlorothiazide 1 tab PO DAILY 10/02/23 12.5 mg tablet metformin 500 mg tablet 500 mg PO BID 10/02/23 dronedarone 400 mg tablet (Multaq) 400 mg PO BID 05/14/24 rivaroxaban 20 mg tablet (Xarelto) 20 mg PO DAILY 05/14/24 Previous Rx's ?Medication ?Instructions ?Recorded lidocaine 5 % topical patch 1 patch topical DAILY #30 ea 12/18/23 albuterol sulfate 90 mcg/actuation 2 puff inhalation Q6H PRN 05/14/24 aerosol inhaler shortness of breath or wheezing #8.5 grams Allergies Allergy/AdvReac Type Severity Reaction Status Date / Time No Known Allergies Allergy Verified 05/25/24 08:28 Review of Systems Review of Systems: Yes all other systems are reviewed and are negative PMFSH Past Medical History Attestation statement: The following information was validated with the patient. Source: old records reviewed and nursing notes reviewed Social History Social History Alcohol intake: current Alcohol intake frequency: holidays/special occasions only Patient Tobacco Use Status: Never used Tobacco Substance Use Type: Marijuana Advance Directives: No Advance Directives Information Provided: Yes Do you have a plan to hurt others: No Plan Physical Exam Vital Signs: Vital Signs: Last Vital Signs Temp 97.2 F 05/25/24 14:00 Pulse 75 05/25/24 14:07 Resp 19 05/25/24 14:07 BP 116/75 05/25/24 14:00 Pulse Ox 92 05/25/24 14:00 O2 Del Method Room Air 05/25/24 14:00 BMI result Body Mass Index 38.3 vss Appearance: Alert.? Oriented X3.? No acute distress.? Head: Normocephalic, atraumatic, no step-offs or deformities Eyes: Pupils equal, round and reactive to light.? ENT: Pharynx normal.? Neck: Normal inspection.? Neck supple.? CVS: Normal heart rate and rhythm.? Pulses normal.? Respiratory: No respiratory distress.? Breath sounds diminished b/l.? Abdomen: Soft and nontender.? Skin: Skin warm and dry.? Normal skin color.? Normal skin turgor.? Extremities: No lower extremity edema.? No calf ttp. 5/5 strength to bilateral upper and lower extremities Neuro: Oriented X 3.? No motor deficit.? No sensory deficit. CN 2-12 intact Course Reevaluation(s) Reevaluation #1: CBC unremarkable. Chemistry with no acute findings requiring intervention. Troponin 24 this appears to be around his baseline will repeat a 3 hour kingsley. BNP 601, no previous to compare with. Chest x-ray with interval development of congestive heart failure pulmonary edema pattern superimposed on interstitial edema. Interval development of left pleural effusion. Patient tells me he is known known history of heart failure. He does not take diuretics. He is on blood thinners. I do not suspect PE on this patient. Lasix ordered. ambulatory O2 pending Time: 11:52 Reevaluation #2: Second troponin 29.4. Not meeting double delta criteria however still higher than initial. Concerns for new onset CHF. Plan is hospital admission Time: 15:05 Medications Administered Discontinued Medications Generic Name Dose Route Start Last Admin Trade Name June PRN Reason Stop Dose Admin Albuterol/Ipratropium 3 ml 05/25/24 13:13 05/25/24 14:00 Albuterol/Iprat 2.5/0.5mg 3 Ml Ampul.Neb INHALE 05/25/24 13:14 3 ml ONCE ONE Administration Furosemide 60 mg 05/25/24 11:51 05/25/24 13:51 Furosemide 100 Mg/10 Ml Vial IVPUSH 05/25/24 11:52 60 mg ONCE ONE Administration Protocol Methylprednisolone Sodium Succinate 125 mg 05/25/24 11:53 05/25/24 13:51 Methylprednisolone Sod Succ 125 Mg/2 Ml Vial IVPUSH 05/25/24 11:54 125 mg ONCE ONE Administration Medical Decision Making Medical Decision Making [facility] Narrative: 1146 54-year-old male presents with shortness of breath worsening over the last few weeks. No associated chest pain. Not on blood thinners. No recent travel. Physical exam breath sounds diminished bilaterally History and physical exam concerning for chronic lung disease versus bronchitis versus restrictive lung disease. Will rule out CHF. Unlikely ACS, PE, dissection. Plan labs, imaging, viral test Differential Diagnosis Differential Diagnoses: The differential diagnosis associated with the presentation includes History and physical exam concerning for chronic lung disease versus bronchitis versus restrictive lung disease. Will rule out CHF. Unlikely ACS, PE, dissection. Admission/Observation Consideration of admission/observation: Escalation of care including admission/observation considered possible Lab Data [facility] Lab Attestation statement: I reviewed the patient's lab results. 05/25/24 08:44 05/25/24 08:44 Labs: Lab Results 05/25/24 05/25/24 05/25/24 Range/Units 08:44 11:24 12:57 WBC 9.6 (4.8-10.8) X10*3/uL RBC 5.66 (4.60-5.80) X10*6/uL Hgb 16.0 (14.0-18.0) g/dl Hct 48.7 (42.0-52.0) % MCV 86.0 (80.0-98.0) fL MCH 28.3 (27.0-33.0) pg MCHC 32.9 (31.0-36.0) g/dl RDW 14.0 (11.0-16.0) % Plt Count 185 (160-400) X10*3/uL MPV 9.7 (9.4-12.4) fL Immature Gran % (Auto) 0.3 (0.0-0.4) % Neut % (Auto) 80.3 H (45-73) % Lymph % (Auto) 9.7 L (20-40) % Hutchinson % (Auto) 7.4 (2-11) % Eos % (Auto) 1.8 (0-4) % Baso % (Auto) 0.5 (0-2) % Lymph # (Auto) 0.9 L (1.2-4.9) X10*3/uL Hutchinson # (Auto) 0.7 (0.1-1.2) X10*3/uL Eos # (Auto) 0.2 (0.0-0.4) X10*3/uL Baso # (Auto) 0.1 (0.0-0.2) X10*3/uL Abs Immat Gran (auto) 0.03 (0.00-0.03) X10*3/uL Absolute Neuts (auto) 7.7 (2.0-8.3) x10*3/uL Absolute Nucleated RBC 0.000 (0.0-0.012) X10*3/uL Nucleated RBC % (auto) 0.0 (0.0-0.2) /100WBC PT 16.7 H (11.1-13.3) SEC INR 1.4 H (0.9-1.1) D-Dimer High Sensitivty < 150 NG/ML Sodium 142 (135-145) mmol/L Potassium 4.3 (3.3-5.1) mmol/L Chloride 113 H (96-108) mmol/L Carbon Dioxide 19 L (22-29) mmol/L Anion Gap 14 (12-20) BUN 18 H (9-16) mg/dL Creatinine 0.91 (0.5-1.4) mg/dL Estim Creat Clear Calc 114.7 Estimated GFR > 60 Random Glucose 177 H (60-115) mg/dL Calcium 9.0 (8.4-10.2) mg/dL Total Bilirubin 0.9 (0.0-1.0) mg/dL AST 29 (5-37) U/L ALT 40 (0-40) U/L Alkaline Phosphatase 54 (39-117) U/L Troponin I High Sens 24.0 29.4 (<3.5-35.0) ng/L B-Natriuretic Peptide 601 H (<100) pg/mL Total Protein 6.5 (6.5-8.0) g/dL Albumin 4.0 (3.5-5.0) g/dL Urine Color Urine Appearance Urine pH (5.0-9.0) Ur Specific Lincoln (1.005-1.025) Urine Protein (Neg-Trace) mg/dL Urine Glucose (UA) (Negative) mg/dL Urine Ketones (Negative) mg/dL Urine Blood (Negative) Urine Nitrite (Negative) Ur Leukocyte Esterase (Negative) Urine RBC (0-2) /HPF Urine WBC (0-5) /HPF Ur Squamous Epith Cells (0-2) /HPF Urine Bacteria (None Seen) Hyaline Casts (0-2) /LPF Influenza Type A (PCR) NEGATIVE (Negative) Influenza Type B (PCR) NEGATIVE (Negative) RSV RNA Qual (PCR) NEGATIVE (Negative) SARS-CoV-2 RNA (RT-PCR) NEGATIVE (Negative) S. pyogenes GrpA PAYAM Negative (Negative) 05/25/24 Range/Units 13:27 WBC (4.8-10.8) X10*3/uL RBC (4.60-5.80) X10*6/uL Hgb (14.0-18.0) g/dl Hct (42.0-52.0) % MCV (80.0-98.0) fL MCH (27.0-33.0) pg MCHC (31.0-36.0) g/dl RDW (11.0-16.0) % Plt Count (160-400) X10*3/uL MPV (9.4-12.4) fL Immature Gran % (Auto) (0.0-0.4) % Neut % (Auto) (45-73) % Lymph % (Auto) (20-40) % Hutchinson % (Auto) (2-11) % Eos % (Auto) (0-4) % Baso % (Auto) (0-2) % Lymph # (Auto) (1.2-4.9) X10*3/uL Hutchinson # (Auto) (0.1-1.2) X10*3/uL Eos # (Auto) (0.0-0.4) X10*3/uL Baso # (Auto) (0.0-0.2) X10*3/uL Abs Immat Gran (auto) (0.00-0.03) X10*3/uL Absolute Neuts (auto) (2.0-8.3) x10*3/uL Absolute Nucleated RBC (0.0-0.012) X10*3/uL Nucleated RBC % (auto) (0.0-0.2) /100WBC PT (11.1-13.3) SEC INR (0.9-1.1) D-Dimer High Sensitivty NG/ML Sodium (135-145) mmol/L Potassium (3.3-5.1) mmol/L Chloride (96-108) mmol/L Carbon Dioxide (22-29) mmol/L Anion Gap (12-20) BUN (9-16) mg/dL Creatinine (0.5-1.4) mg/dL Estim Creat Clear Calc Estimated GFR Random Glucose (60-115) mg/dL Calcium (8.4-10.2) mg/dL Total Bilirubin (0.0-1.0) mg/dL AST (5-37) U/L ALT (0-40) U/L Alkaline Phosphatase (39-117) U/L Troponin I High Sens (<3.5-35.0) ng/L B-Natriuretic Peptide (<100) pg/mL Total Protein (6.5-8.0) g/dL Albumin (3.5-5.0) g/dL Urine Color Yellow Urine Appearance Clear Urine pH 5.5 (5.0-9.0) Ur Specific Lincoln >= 1.030 H (1.005-1.025) Urine Protein Negative (Neg-Trace) mg/dL Urine Glucose (UA) >=1000 H (Negative) mg/dL Urine Ketones 15 (Negative) mg/dL Urine Blood Negative (Negative) Urine Nitrite Negative (Negative) Ur Leukocyte Esterase Negative (Negative) Urine RBC 0-2 (0-2) /HPF Urine WBC 0-5 (0-5) /HPF Ur Squamous Epith Cells 0-2 (0-2) /HPF Urine Bacteria None Seen (None Seen) Hyaline Casts 0-2 (0-2) /LPF Influenza Type A (PCR) (Negative) Influenza Type B (PCR) (Negative) RSV RNA Qual (PCR) (Negative) SARS-CoV-2 RNA (RT-PCR) (Negative) S. pyogenes GrpA PAYAM (Negative) Independent Interpretation I performed an independent interpretation of an: EKG (Vent. Rate : 096 BPM Atrial Rate : 096 BPM P-R Int : 144 ms QRS Dur : 092 ms QT Int : 396 ms P-R-T Axes : 020 039 049 degrees QTc Int : 500 ms Sinus rhythm with marked sinus arrhythmia Moderate voltage criteria for LVH, may be normal variant ( Sokolow-De Luna , Wesley p) and Plain X-Ray (XR/XR chest 2V IMPRESSION: 1. Interval development of congestive heart failure, pulmonary edema pattern superimposed on interstitial edema. 2. Interval development of small Left pleural effusion.) Radiology Impression Discussion of test interpretation with radiology: I have reviewed the radiologist's reading. External Record Review External record reviewed: Inpatient record, Office record, Outpatient record, Prior outpatient labs, Prior outpatient radiology, Primary care record and Outside ED record Chronic Conditions Patient?s care impacted by: Diabetes, Hypertension and Other (obesity ) Critical Care Time Critical Care Time Critical Care Time: Yes Total Critical Care Time: 35 Attestation: I attest to this time spent taking care of the patient, obtaining history, physical, reviewing labs, imaging, speaking to my attending, specialist or hospitalist. Discharge Plan Discharge Clinical Impression: Congestive heart failure Patient Disposition: Admitted As Inpatient Print Language: Ukrainian
[2024-05-25 11:49] LABS: B Type Natriuretic Peptide 601 pg/mL (<100)
[2024-05-25 13:13] LABS: INTERNATIONAL NORM RATIO 1.4 (0.9-1.1); Prothrombin Time 16.7 SEC (11.1-13.3)
[2024-05-25 13:34] LABS: Troponin-I High Sensitivity 29.4 ng/L (<3.5-35.0)
[2024-05-25 13:36] LABS: Appearance Urine Clear; Color Urine Yellow; Glucose Urine UA >=1000 mg/dL (Negative); Leukocyte Esterase Urine Negative (Negative); Nitrite Urine Negative (Negative); PH 5.5 (5.0-9.0); Specific Gravity - Urine >= 1.030 (1.005-1.025); UMIC TRIGGER UACC YES; Urine Blood Negative (Negative); Urine Ketones 15 mg/dL (Negative); Urine Protein Negative (Neg-Trace)
[2024-05-25 13:43] LABS: Bacteria Urine None Seen (None Seen); Hyaline Casts Urine 0-2 /LPF (0-2); RBC Urine 0-2 /HPF (0-2); Squamous Epithelial Cell Urine 0-2 /HPF (0-2); WBC Urine 0-5 /HPF (0-5)
[2024-05-25] MEDS: methylPREDNISolone Sod Succ 125 MG/2 ML VIAL IVPUSH (13:51)
[2024-05-25] MEDS: Furosemide 100 MG/10 ML VIAL 60 MG IVPUSH (13:51)
[2024-05-25] MEDS: Albuterol/Iprat 2.5/0.5MG 3 ML AMPUL.NEB INHALE (14:00)
[2024-05-25 14:05] LABS: D Dimer High Sensitivity < 150 NG/ML
--- NOTE | 2024-05-25 15:43 | P.HPHOSP_ITS ---
History of Present Illness Date of Service: 05/25/24 Attending physician on admission: Levy Stout Chief Complaint: sob 54 year old male with history of paroxysmal atrial fibrillation on multaq and xarelto, insulin dependent type 2 diabetes, htn , hld, chronic pain disorder presented to the ed earlier today for evaluation of worsenin lu and orthopnea. He reports sob that has been persistent x several years. Has followed with cardiology and was diagnosed with afib earlier this year and is scheduled for an ablation next week ([facility]). He has also been following with pcp and was told he performed poorly on PFT but is unsure of diagnosis but was given albuterol inhaler which does not provide much relief. 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 He denies lightheadedness, palpitations, syncope, chest pain. No recent illness. On arrival VSS. However shortly after admission, patient developed tachycardia in the 170s with some diaphoresis and became hypoxic around 88%, placed on 2L maintaining oximetry 95%. HR improved to 120-130 wtih metoprolol 5mg IV x2. Hematology studies unremarkable. Renal function normal. Lytes normal except CO@ 19 and Cl113. Trops flat, BNP 600. CXR shows pulmonary edema superimposed on interstitial edema with pleural effusion. In the ED, given 60mg lasix, lopressor 5mg x2 after repeat EKG reveal atrial flutter with RVR. Pt converted back to NSR, rates 70s. Review of Systems 2 Review of Systems: Yes all other systems are reviewed and are negative [facility] Medical History HLD (hyperlipidemia) HTN (hypertension) Atrial fibrillation Type 2 diabetes mellitus Family History (Updated 05/26/24 @ 10:03 by Kaiden Combs MD) Father Heart disease Social History Household Members: Family Housing: House Alcohol intake: never Comment: pt refused high fall interventions Patient Tobacco Use Status: Never used Tobacco Smoked in Last 30 Days: No Use of substances other than those prescribed or required for medical reasons: Yes Substance Use Type: Marijuana Substance Use Frequency: Monthly Last Used Substance: Weeks (ago) Currently Displaying Signs/Symptoms of Drug Intoxication Withdrawal: No Have you been hit, kicked, punched, or otherwise hurt by someone within the past year? If so, by whom?: No Is there a partner from a previous relationship who is making you feel unsafe now?: No Are you made to feel afraid or neglected: No Advance Directives: No Advance Directives Information Provided: Yes Do you have a plan to hurt others: No Plan Nutrition Risks: No Nutritional Risk service: No Meds Allergies Allergy/AdvReac Type Severity Reaction Status Date / Time No Known Allergies Allergy Verified 05/25/24 08:28 Active Medications: Current Medications Acetaminophen (Acetaminophen 325 Mg Tablet) 650 mg PO Q6H PRN PRN Reason: Pain, Mild (Pain Scale 1-3), fever or headache Calcium Carbonate (Calcium Carbonate 750 Mg Tab.Chew) 750 mg PO Q4H PRN PRN Reason: Heartburn Furosemide (Furosemide 40 Mg/4 Ml Vial) 40 mg IVPUSH DAILY [facility]; Protocol Glucose (Glucose Gel 15 Gm Gel..Gram.) 15 gm PO Q15M PRN; Protocol PRN Reason: per Hypoglycemia Standing Ord. Dextrose (D10) 250 mls @ 750 mls/hr IV Q15M PRN; Protocol PRN Reason: per Hypoglycemia Standing Ord. Insulin Human Lispro (Insulin Lispro 100 Unit/Ml 3 Ml Vial) 0 unit SUBCUT QIDACHS [facility]; Protocol Magnesium Hydroxide (Milk Of Magnesia 30 Ml Oral.Susp) 30 ml PO DAILY PRN PRN Reason: Constipation Melatonin (Melatonin 3 Mg Tablet) 6 mg PO BEDTIME PRN PRN Reason: Insomnia Sodium Chloride (0.9 % Sodium Chloride Flush 3 Ml Syringe) 3 ml IVFLUSH [facility] Home Medications ?Medication ?Instructions ?Recorded ?Confirmed ?Last Taken ?Type atorvastatin 40 mg tablet 40 mg PO DAILY 10/02/23 05/25/24 05/25/24 07:00 History empagliflozin 10 mg tablet 10 mg PO DAILY 10/02/23 05/25/24 05/25/24 07:00 History (Jardiance) insulin glargine 100 unit/mL (3 58 unit subcut BEDTIME 10/02/23 05/25/24 05/24/24 History mL) subcutaneous pen (Lantus Solostar U-100 Insulin) losartan 50 mg-hydrochlorothiazide 1 tab PO DAILY 10/02/23 05/25/24 05/25/24 07:00 History 12.5 mg tablet rivaroxaban 20 mg tablet (Xarelto) 20 mg PO BEDTIME 05/14/24 05/25/24 05/24/24 History metformin 500 mg tablet,extended 500 mg PO DAILY 05/25/24 05/25/24 Unknown History release 24 hr Physical Exam 2 Vital Signs and Narrative: Vital Signs: Last Vital Signs Temp 97.2 F 05/25/24 14:00 Pulse 75 05/25/24 14:07 Resp 19 05/25/24 14:07 BP 116/75 05/25/24 14:00 Pulse Ox 92 05/25/24 14:00 O2 Del Method Room Air 05/25/24 14:00 BMI result Body Mass Index 38.3 Constitutional - Awake and Alert, No apparent distress Eyes - PERRLA, EOMI Cardiovascular - S1S2, RRR, IV/ murmur, No edema Respiratory - Normal lung expansion, Normal respiratory effort, No respiratory distress, CTA bilaterally Gastrointestinal - NT / ND; +BS; No rebound or guarding Extremities - no calf tenderness bilaterally, no swelling Skin - Warm/Dry Neurological - Alert & oriented x3 Psychological - Appropriate affect Results Labs 05/26/24 15:00 05/26/24 13:32 Labs: Laboratory Results - last 24 hr 05/25/24 05/25/24 05/25/24 08:44 11:24 12:57 MCV 86.0 MCH 28.3 MCHC 32.9 RDW 14.0 Plt Count 185 MPV 9.7 Immature Gran % (Auto) 0.3 Neut % (Auto) 80.3 H Lymph % (Auto) 9.7 L Dickson % (Auto) 7.4 Eos % (Auto) 1.8 Baso % (Auto) 0.5 Lymph # (Auto) 0.9 L Dickson # (Auto) 0.7 Eos # (Auto) 0.2 Baso # (Auto) 0.1 Abs Immat Gran (auto) 0.03 Absolute Neuts (auto) 7.7 Absolute Nucleated RBC 0.000 Nucleated RBC % (auto) 0.0 PT 16.7 H INR 1.4 H D-Dimer High Sensitivty < 150 Anion Gap 14 Estim Creat Clear Calc 114.7 Estimated GFR > 60 Random Glucose 177 H Calcium 9.0 Total Bilirubin 0.9 AST 29 ALT 40 Alkaline Phosphatase 54 Troponin I High Sens 24.0 29.4 B-Natriuretic Peptide 601 H Total Protein 6.5 Albumin 4.0 Urine Color Urine Appearance Urine pH Ur Specific Andrew Urine Protein Urine Glucose (UA) Urine Ketones Urine Blood Urine Nitrite Ur Leukocyte Esterase Urine RBC Urine WBC Ur Squamous Epith Cells Urine Bacteria Hyaline Casts Influenza Type A (PCR) NEGATIVE Influenza Type B (PCR) NEGATIVE RSV RNA Qual (PCR) NEGATIVE SARS-CoV-2 RNA (RT-PCR) NEGATIVE S. pyogenes GrpA PAYAM Negative 05/25/24 13:27 MCV MCH MCHC RDW Plt Count MPV Immature Gran % (Auto) Neut % (Auto) Lymph % (Auto) Dickson % (Auto) Eos % (Auto) Baso % (Auto) Lymph # (Auto) Dickson # (Auto) Eos # (Auto) Baso # (Auto) Abs Immat Gran (auto) Absolute Neuts (auto) Absolute Nucleated RBC Nucleated RBC % (auto) PT INR D-Dimer High Sensitivty Anion Gap Estim Creat Clear Calc Estimated GFR Random Glucose Calcium Total Bilirubin AST ALT Alkaline Phosphatase Troponin I High Sens B-Natriuretic Peptide Total Protein Albumin Urine Color Yellow Urine Appearance Clear Urine pH 5.5 Ur Specific Andrew >= 1.030 H Urine Protein Negative Urine Glucose (UA) >=1000 H Urine Ketones 15 Urine Blood Negative Urine Nitrite Negative Ur Leukocyte Esterase Negative Urine RBC 0-2 Urine WBC 0-5 Ur Squamous Epith Cells 0-2 Urine Bacteria None Seen Hyaline Casts 0-2 Influenza Type A (PCR) Influenza Type B (PCR) RSV RNA Qual (PCR) SARS-CoV-2 RNA (RT-PCR) S. pyogenes GrpA PAYAM Imaging Radiologist's Impressions: Impressions Chest X-Ray 05/25/24 08:48 IMPRESSION: 1. Interval development of congestive heart failure, pulmonary edema pattern superimposed on interstitial edema. 2. Interval development of small Left pleural effusion. Assessment and Plan (1) Congestive heart failure: Status: Acute (2) Atrial flutter with rapid ventricular response: Status: Acute Plan 54 year old male with history of paroxysmal atrial fibrillation on multaq and xarelto, insulin dependent type 2 diabetes, htn , hld, chronic pain disorder admitted for new onset CHF with atrial flutter with rvr. #Paroxysmal atrial fibrillation/flutter with RVR -In the ED, given lopressor 5mg IV x 2, converted to NSR, rates 60s-70s -Initiate amiodarone 400mg bid per cardiology. DC multaq -PO metoprolol 12.5mg q6h -continue xarelto -echo -cardiology consult -monitor on tele -follows with Dr Wolf at [facility], was scheduled for ablation next #New onset CHF -CXR shows pulmonary edema on interstitial edema with effusions -iv lasix 40mg daily -strict I&O, daily weights -cardiac diet -echo -cardiology consult #insulin dependent type 2 diabetes -dose adjusted basal insulin -poc glucose, diabetic diet -admelog on ss -continue jardiance, hold metformin #HTN -on metoprolol 12.5mg q6h -resume lisinopril/hctz as bp allows #HLD -continue statin #?Chronic lung disease, unspecified -no exacerbation, albuterol prn -outpt follow up DVT prophylaxis- xarelto full code Pt requires inpt stay at least 2 midnights for management of aflutter with RVR and new onset chf requiring iv diuresis, iv rate control, expert consultation, and cardiac monitoring Quality Stroke Does the patient have a stroke diagnosis?: No VTE Prior VTE?: No VTE Risk Level:: Medical - moderate - high VTE Device Contraindication: Treatment Not Indicated VTE Drug Contraindication: N/A - Med Ordered
--- NOTE | 2024-05-25 15:46 | PHA.MEDREC ---
Pharmacy Consult ? Medication Reconciliation Pharmacy has completed the medication reconciliation. Confirmed medications with patient. He confirmed he is taking his Lantus Insulin 58 units every day at night and his Xarelto 20mg once at night and he confirmed he took them both last night 05/24/2024.
--- NOTE | 2024-05-25 15:57 | ECG_ITS ---
Test Reason : ER Blood Pressure : / mmHG Vent. Rate : 072 BPM Atrial Rate : 072 BPM P-R Int : 148 ms QRS Dur : 092 ms QT Int : 448 ms P-R-T Axes : 029 037 045 degrees QTc Int : 490 ms Normal sinus rhythm Possible Left atrial enlargement Left ventricular hypertrophy ( Sokolow-De Luna , [place] product ) Prolonged QT Abnormal ECG when compared to prior EKG in system, rhythm change (may 25; 15:56hrs) Referred By: Adrienne Warner Electronically Signed By:LUIS WILKINSON
[2024-05-25] MEDS: Metoprolol Tartrate 5 MG/5 ML VIAL IVPUSH ×2 (16:04→16:07)
--- NOTE | 2024-05-25 16:05 | PC.NURSE ---
Addendum entered by Gabriella Giordano RN 05/25/24 18:39: Pt placed on monitor and was found to be in A-Flutter with HR to 160s and O2 SAT 88% on RA. Pt placed on 3L O2 via NC. Pt denies any worsening SOB, chest pain or palpitations. ILEANA Gastelum notified. EKG done. Original Note: Pt given 5mg IV Lopressor @1605. 5mg metop @1607.
[2024-05-25] MEDS: Metoprolol Tartrate 25 MG TABLET PO (16:21)
[2024-05-25 16:44] LABS: Glucose, Whole Blood 143 mg/dL (60-115)
[2024-05-25 16:57] LABS: Glucose, Whole Blood 178 mg/dL (60-115)
[2024-05-25 17:01] LABS: TSH reflex Free T4 1.48 uIU/mL (0.32-4.0)
[2024-05-25] MEDS: Amiodarone HCL 200 MG TABLET 400 MG PO (17:47)
[2024-05-25] MEDS: 0.9 % Sodium Chloride Flush 3 ML SYRINGE IVFLUSH (17:49)
[2024-05-25] MEDS: Metoprolol Tartrate 12.5 MG HALFTAB PO ×2 (19:25→22:04)
[2024-05-25 21:22] LABS: Glucose, Whole Blood 297 mg/dL (60-115)
[2024-05-25] MEDS: Insulin Lispro 100 UNIT/ML 3 ML VIAL SUBCUT (21:30)
[2024-05-25] MEDS: Rivaroxaban 20 MG TABLET PO (21:30)
[2024-05-25] MEDS: Insulin Glargine,Hum.rec.anlog 100 UNIT/ML 10 ML VIAL 44 UNIT SUBCUT (21:31)
[2024-05-26] VITALS (7 sets, daily range): BP systolic 100–128; BP diastolic 60–77; PULSE 71–96; RESP 18–20; TEMP 36–36.7; O2SAT 92–96; BMI 37.6; BMI 37.8
--- NOTE | 2024-05-26 | ECG_ITS ---
Test Reason : tachy Blood Pressure : / mmHG Vent. Rate : 072 BPM Atrial Rate : 072 BPM P-R Int : 158 ms QRS Dur : 102 ms QT Int : 456 ms P-R-T Axes : 036 045 080 degrees QTc Int : 499 ms Normal sinus rhythm Possible Left atrial enlargement Left ventricular hypertrophy ( Sokolow-De Luna , [place] product ) Nonspecific T wave abnormality Prolonged QT Abnormal ECG When compared with ECG of 25-MAY-2024 16:31, Nonspecific T wave abnormality, worse in Lateral leads Referred By: Luis Wilkinson Electronically Signed By:LUIS WILKINSON
[2024-05-26] MEDS: 0.9 % Sodium Chloride Flush 3 ML SYRINGE IVFLUSH ×2 (01:13→07:59)
[2024-05-26 01:47] LABS: Glucose, Whole Blood 239 mg/dL (60-115)
[2024-05-26 06:15] LABS: MANUAL DIFF FLAG NO
[2024-05-26 06:24] LABS: Basophils Percent Auto 0.3 % (0-2); Eosinophils Percent Auto 0.2 % (0-4); Hematocrit 47.2 % (42.0-52.0); Hemoglobin 15.5 g/dl (14.0-18.0); Imm Gran Abs Auto 0.06 X10*3/uL (0.00-0.03); Imm Gran Pct Auto 0.5 % (0.0-0.4); Lymphocytes Absolute Auto 0.7 X10*3/uL (1.2-4.9); Lymphocytes Percent Auto 5.4 % (20-40); Mean Corpuscular HGB Conc 32.8 g/dl (31.0-36.0); Mean Corpuscular Hemoglobin 28.3 pg (27.0-33.0); Mean Corpuscular Volume 86.1 fL (80.0-98.0); Mean Platelet Volume 10.2 fL (9.4-12.4); Monocytes Absolute Auto 1.1 X10*3/uL (0.1-1.2); Monocytes Percent Auto 8.7 % (2-11); Neutrophils Absolute Auto 11.1 x10*3/uL (2.0-8.3); Neutrophils Percent Auto 84.9 % (45-73); Platelet Count 195 X10*3/uL (160-400); Red Blood Count 5.48 X10*6/uL (4.60-5.80)
[2024-05-26 06:44] LABS: Anion Gap 16 (12-20); Blood Urea Nitrogen 29 mg/dL (9-16); Calcium 9.5 mg/dL (8.4-10.2); Carbon Dioxide 23 mmol/L (22-29); Chloride 110 mmol/L (96-108); Creatinine Clr Calc Pharmacy 80.1; Estimated Glomerular Filt Rate 58; Glucose Random 184 mg/dL (60-115); Potassium 5.4 mmol/L (3.3-5.1); Sodium 144 mmol/L (135-145)
--- NOTE | 2024-05-26 07:00 | CA_ITS ---
Transthoracic Echocardiogram Patient (Last, First, Middle): Adam Valentin E Gender: Male Date of : 1970 Age: 54 Procedure Date: 05/26/2024 Procedure Type: Transthoracic E[place]ogram [place] [facility] [place]: 175.26 cm Weight: 115.21 kg BSA: 2.29 m2 Heart Rate: bpm BP: 116 / 74 mmHg Diver Helper: Referring MD: Adrienne TEJEDA Symptoms: chf exacerbation Study Quality: Adequate w Contrast ECG Rhythm: Sinus Conclusions: - The left ventricular systolic function is severely decreased. The visually estimated ejection fraction is between 20-25%. - Evidence suggests grade III (severe) diastolic dysfunction. - There is severe aortic valve stenosis. - Mild to moderate pulmonary hypertension is present. Findings Procedure Information Contrast agent, definity, is being given per protocol without apparent complications. Left Ventricle Mildly increased left ventricular cavity size. The left ventricular systolic function is severely decreased. The visually estimated ejection fraction is between 20-25%. There is severe global hypokinesis. E/E prime ratio is >15, consistent with elevated filling pressures. Evidence suggests grade III (severe) diastolic dysfunction. Right Ventricle Moderately increased right ventricular cavity size. There is normal right ventricular systolic function. Atria The left atrium is moderately dilated. The right atrium is normal in size. Aortic Valve There is severe calcification of the aortic valve. There is severe aortic valve stenosis. The peak aortic velocity is 4.43 m/s with a calculated peak gradient of 78 mmHg. The mean gradient is 48 mmHg. The aortic valve area is 0.55 cm2. There is mild aortic valve regurgitation. Possible bicuspid aortic valve. Mitral Valve There is mild mitral annular calcification. There is mild mitral valve regurgitation. There is no mitral valve stenosis. Pulmonic Valve There is trace pulmonic valve regurgitation. Tricuspid Valve There is mild tricuspid valve regurgitation. Mild to moderate pulmonary hypertension is present. Great Vessels The asc aorta is normal in size. Venous The inferior vena cava is normal in size and collapses greater than 50% with inspiration. Pericardium/Pleural There is a moderate left sided pleural effusion. Prior Study Comparison No prior study available for comparison. Measurements 2D Linear Measurements IVSd: 1.30 0.6-0.9/0.6-1.0 cm LVIDd: 5.93 3.9-5.3/4.2-5.9 cm LVIDd Index: 2.59 2.4-3.2/2.2-3.1 cm/m2 LVIDs: 5.26 2.0-3.6 cm LVPWd: 1.25 0.7-1.1 cm Ao Root: 3.00 2.1-3.5 cm LA Diam: 5.30 2.7-3.8/3.0-4.0 cm LAIDs Index: 2.31 1.5-2.3 cm/m2 LV Mass: 417.32 67-162/88-224 g LV Mass Index: 182.24 43-95/49-115 g/m2 LVOT Diam: 2.20 3.0+(-)1.3 cm 2D Systolic Function EF 4C: 26.10 >55% EF 2C: 12.80 >55% EF BiP: 17.20 >55% Mitral Valve MV Pk E: 1.20 MV PK A: 0.32 MV Decel Time: 151.00 E/A: 3.80 E'Lateral: 6.64 E'Medial: 4.46 E/E' Med: 26.90 E/E' Lat: 18.10 PHT: 44.00 MVA PHT: 5.00 Decel Colbert: 7.95 Aortic Valve AoV Pk Michele: 4.43 AoV Mn Michele: 3.27 AoV VTI: 1.03 AoV Pk Grad: 78.00 Aov Mn Grad: 48.00 STEVEN Cont.VTI: 0.55 LVOT LVOT Pk Michele: 0.61 LVOT Mn Michele: 0.44 LVOT VTI: 0.15 LVOT Pk Grad: 1.00 LVOT Mn Grad: 1.00 LVOT Diam: 2.20 LVOT Area: 3.80 Diastolic Function MV Pk E: 1.20 MV Pk A: 0.32 E/A: 3.80 E'Medial: 4.46 E/E' Med: 26.90 E' Laterial: 6.64 E/E' Lat: 18.10 Right Ventricle TAPSE (mm): 23.00 TVS' Michele: 9.00 Tricuspid Valve TR Pk Michele: 3.55 TR Pk Grad: 50.00 RA Press: 3.00 RVSP: 53.00 Great Vessels Aorta Ao Root-2D: 3.00 2.0-3.7 cm Ao Asc: 3.20 2.1-3.4 cm Pulmonary Valve PV Pk Michele: 1.27 Peak PV Grad: 6.00 Updated in Other Vendor System with Status of Final Kaiden Combs MD electronically signed on 05/26/2024 12:27:34 PM with status of Final
[2024-05-26 07:26] LABS: Glucose, Whole Blood 148 mg/dL (60-115)
[2024-05-26] MEDS: Atorvastatin Calcium 40 MG TABLET PO (07:59)
[2024-05-26] MEDS: Amiodarone HCL 200 MG TABLET 400 MG PO (07:59)
[2024-05-26] MEDS: Empagliflozin 10 MG TABLET PO (07:59)
[2024-05-26] MEDS: Metoprolol Tartrate 12.5 MG HALFTAB PO ×2 (07:59→12:37)
--- NOTE | 2024-05-26 10:01 | PM.CNCAR ---
History of Present Illness History of Present Illness Date of Service: 05/26/24 Chief complaint: chf exacerbation Narrative: This is a cardiology consultation regarding atrial flutter/fibrillation with rapid rate. He goes to [facility] and apparently set up for a atrial fibrillation ablation due for next week. Many comorbidities including hypertension, lipids among others. He states that he has been having shortness of breath during the summer months and it has been like this for many years but in the last few days, much worse than usual. He came mainly for his shortness of breath but in this context he also developed a narrow complex tachycardia in the emergency room and thought to be flutter/fibrillation with rapid rates. Then he got IV beta-blockers. He also had a chest x-ray done and that had reported pulmonary edema. He was eventually admitted for further care. Currently, he states he is okay. Better than at the time of admission. No clear anginal-type complaints. Some palpitations related to the atrial fibrillation/flutter but not very clear about that. Review of Systems Review of Systems: Yes all other systems are reviewed and are negative Constitutional: Constitutional: Reports as per HPI and Reports no additional constitutional complaints Eyes: Eyes: Reports as per HPI and Denies no additional eye complaints ENT: Denies system reviewed and no additional complaints, except as documented and Reports as per HPI Cardiovascular: Cardiovascular: Reports as per HPI, Reports no additional cardiovascular complaints, Denies acrocyanosis, Denies cool extremities, Denies chest pain, Denies leg edema, Denies lightheadedness, Denies palpitations and Reports dyspnea Respiratory: Respiratory: Reports as per HPI, Denies no additional respiratory complaints and Reports dyspnea Gastrointestinal: Gastrointestinal: Reports as per HPI and Denies no additional gastrointestinal complaints Genitourinary: Genitourinary: Reports no additional male genitourinary complaints and Reports as per HPI Musculoskeletal: Musculoskeletal: Reports no additional musculoskeletal complaints and Reports as per HPI Integumentary/Breasts: Skin/Breast: Reports system reviewed and no additional complaints, except as docu Neurologic: Reports system reviewed and no additional complaints, except as documented and Reports as per HPI Psychiatric: Psychiatric: Reports no additional psychiatric complaints and Reports as per HPI Endocrine: Endocrine: Reports no additional endocrine complaints, Reports as per HPI and Denies palpitations Hematologic/Lymphatic: Hematologic/Lymphatic: Reports no additional hematologic/lymphatic complaints and Reports as per HPI Allergic/Immunologic: Allergic/Immunologic: Reports no additional allergic/immunologic complaints and Reports as per HPI [facility] Past Medical History Medical History HLD (hyperlipidemia) HTN (hypertension) Atrial fibrillation Type 2 diabetes mellitus Family History Family History (Updated 05/26/24 @ 10:03 by Kaiden Combs MD) Father Heart disease Social History Social History Household Members: Family Housing: House Alcohol intake: never Patient Tobacco Use Status: Never used Tobacco Smoked in Last 30 Days: No Use of substances other than those prescribed or required for medical reasons: Yes Substance Use Type: Marijuana Substance Use Frequency: Monthly Last Used Substance: Weeks (ago) Currently Displaying Signs/Symptoms of Drug Intoxication Withdrawal: No Have you been hit, kicked, punched, or otherwise hurt by someone within the past year? If so, by whom?: No Is there a partner from a previous relationship who is making you feel unsafe now?: No Are you made to feel afraid or neglected: No Advance Directives: No Advance Directives Information Provided: Yes Do you have a plan to hurt others: No Plan Nutrition Risks: No Nutritional Risk Meds Allergies Allergy/AdvReac Type Severity Reaction Status Date / Time No Known Allergies Allergy Verified 05/25/24 08:28 Active Medications: Current Medications Acetaminophen (Acetaminophen 325 Mg Tablet) 650 mg PO Q6H PRN PRN Reason: Pain, Mild (Pain Scale 1-3), fever or headache Albuterol Sulfate (Albuterol Sulfate 90 Mcg 8 Gm Inhaler) 2 puff INHALE Q6H PRN PRN Reason: shortness of breath or wheezing Amiodarone HCl (Amiodarone Hcl 200 Mg Tablet) 400 mg PO BID [facility] Last Admin: 05/26/24 07:59 Dose: 400 mg Atorvastatin Calcium (Atorvastatin Calcium 40 Mg Tablet) 40 mg PO DAILY [facility] Last Admin: 05/26/24 07:59 Dose: 40 mg Calcium Carbonate (Calcium Carbonate 750 Mg Tab.Chew) 750 mg PO Q4H PRN PRN Reason: Heartburn Empagliflozin (Empagliflozin 10 Mg Tablet) 10 mg PO DAILY [facility] Last Admin: 05/26/24 07:59 Dose: 10 mg Glucose (Glucose Gel 15 Gm Gel..Gram.) 15 gm PO Q15M PRN; Protocol PRN Reason: per Hypoglycemia Standing Ord. Dextrose (D10) 250 mls @ 750 mls/hr IV Q15M PRN; Protocol PRN Reason: per Hypoglycemia Standing Ord. Insulin Glargine (Insulin Glargine,Hum.Rec.Anlog 100 Unit/Ml 10 Ml Vial) 44 unit SUBCUT BEDTIME [facility] Last Admin: 05/25/24 21:31 Dose: 44 unit Insulin Human Lispro (Insulin Lispro 100 Unit/Ml 3 Ml Vial) 0 unit SUBCUT QIDACHS [facility]; Protocol Last Admin: 05/26/24 07:29 Dose: Not Given Magnesium Hydroxide (Milk Of Magnesia 30 Ml Oral.Susp) 30 ml PO DAILY PRN PRN Reason: Constipation Melatonin (Melatonin 3 Mg Tablet) 6 mg PO BEDTIME PRN PRN Reason: Insomnia Metoprolol Tartrate (Metoprolol Tartrate 12.5 Mg Halftab) 12.5 mg PO QID [facility]; Protocol Last Admin: 05/26/24 07:59 Dose: 12.5 mg Rivaroxaban (Rivaroxaban 20 Mg Tablet) 20 mg PO BEDTIME [facility] Last Admin: 05/25/24 21:30 Dose: 20 mg Sodium Chloride (0.9 % Sodium Chloride Flush 3 Ml Syringe) [facility] Last Admin: 05/26/24 07:59 Dose: 3 ml Home Medications ?Medication ?Instructions ?Recorded ?Confirmed ?Last Taken ?Type atorvastatin 40 mg tablet 40 mg PO DAILY 10/02/23 05/25/24 05/25/24 07:00 History empagliflozin 10 mg tablet 10 mg PO DAILY 10/02/23 05/25/24 05/25/24 07:00 History (Jardiance) insulin glargine 100 unit/mL (3 58 unit subcut BEDTIME 10/02/23 05/25/24 05/24/24 History mL) subcutaneous pen (Lantus Solostar U-100 Insulin) losartan 50 mg-hydrochlorothiazide 1 tab PO DAILY 10/02/23 05/25/24 05/25/24 07:00 History 12.5 mg tablet dronedarone 400 mg tablet (Multaq) 400 mg PO BID 05/14/24 05/25/24 05/25/24 07:00 History rivaroxaban 20 mg tablet (Xarelto) 20 mg PO BEDTIME 05/14/24 05/25/24 05/24/24 History metformin 500 mg tablet,extended 500 mg PO DAILY 05/25/24 05/25/24 Unknown History release 24 hr Physical Exam Vital Signs: Vital Signs: Last Vital Signs Temp 97.8 F 05/26/24 07:50 Pulse 77 05/26/24 07:50 Resp 19 05/26/24 07:50 BP 106/72 05/26/24 07:50 Pulse Ox 96 05/26/24 07:50 O2 Del Method Nasal Cannula 05/26/24 07:50 O2 Flow Rate 2 05/26/24 07:50 BMI result Body Mass Index 37.6 Const: General: comfortable and no acute distress Orientation/consciousness: patient oriented x3 HEENT: Other: Unremarkable Head: Yes normal to inspection Neck: Neck: Yes normal visual inspection Chest: Chest palpation & inspection: normal inspection of the chest Resp: Other: Few inspiratory crackles Cardio: Palpation: normal PMI Heart sounds: S1 normal heart sound present, S2 normal heart sound present, no gallops, Murmur heart sound present systolic II/, at the apex and at the right sternal border and no rubs GI: Palpation (GI): Soft to palpation Back/Spine/Pelvis: Other: unremarkable Skin: General skin exam: no rashes or lesions noted Neuro: General: patient oriented x3 Extrem: Other: Trace edema General: Yes normal to inspection Psych: Mental Status: mental status grossly normal Objective Labs and Meds 05/26/24 06:09 05/26/24 06:09 Lab results: Laboratory Results - last 24 hr 05/25/24 05/25/24 05/25/24 08:44 11:24 12:57 WBC RBC Hgb Hct MCV MCH MCHC RDW Plt Count MPV Immature Gran % (Auto) Neut % (Auto) Lymph % (Auto) Oliver % (Auto) Eos % (Auto) Baso % (Auto) Lymph # (Auto) Oliver # (Auto) Eos # (Auto) Baso # (Auto) Abs Immat Gran (auto) Absolute Neuts (auto) Absolute Nucleated RBC Nucleated RBC % (auto) PT 16.7 H INR 1.4 H D-Dimer High Sensitivty < 150 Sodium Potassium Chloride Carbon Dioxide Anion Gap BUN Creatinine Estim Creat Clear Calc Estimated GFR POC Glucose Random Glucose Calcium Magnesium 2.0 Troponin I High Sens 29.4 B-Natriuretic Peptide 601 H TSH 1.48 Urine Color Urine Appearance Urine pH Ur Specific [place] Urine Protein Urine Glucose (UA) Urine Ketones Urine Blood Urine Nitrite Ur Leukocyte Esterase Urine RBC Urine WBC Ur Squamous Epith Cells Urine Bacteria Hyaline Casts S. pyogenes GrpA PAYAM Negative 05/25/24 05/25/24 05/25/24 13:27 16:10 16:53 WBC RBC Hgb Hct MCV MCH MCHC RDW Plt Count MPV Immature Gran % (Auto) Neut % (Auto) Lymph % (Auto) Oliver % (Auto) Eos % (Auto) Baso % (Auto) Lymph # (Auto) Oliver # (Auto) Eos # (Auto) Baso # (Auto) Abs Immat Gran (auto) Absolute Neuts (auto) Absolute Nucleated RBC Nucleated RBC % (auto) PT INR D-Dimer High Sensitivty Sodium Potassium Chloride Carbon Dioxide Anion Gap BUN Creatinine Estim Creat Clear Calc Estimated GFR POC Glucose 143 H 178 H Random Glucose Calcium Magnesium Troponin I High Sens B-Natriuretic Peptide TSH Urine Color Yellow Urine Appearance Clear Urine pH 5.5 Ur Specific [place] >= 1.030 H Urine Protein Negative Urine Glucose (UA) >=1000 H Urine Ketones 15 Urine Blood Negative Urine Nitrite Negative Ur Leukocyte Esterase Negative Urine RBC 0-2 Urine WBC 0-5 Ur Squamous Epith Cells 0-2 Urine Bacteria None Seen Hyaline Casts 0-2 S. pyogenes GrpA PAYAM 05/25/24 05/26/24 05/26/24 21:19 01:42 06:09 WBC 13.0 H RBC 5.48 Hgb 15.5 Hct 47.2 MCV 86.1 MCH 28.3 MCHC 32.8 RDW 14.0 Plt Count 195 MPV 10.2 Immature Gran % (Auto) 0.5 H Neut % (Auto) 84.9 H Lymph % (Auto) 5.4 L Oliver % (Auto) 8.7 Eos % (Auto) 0.2 Baso % (Auto) 0.3 Lymph # (Auto) 0.7 L Oliver # (Auto) 1.1 Eos # (Auto) 0.0 Baso # (Auto) 0.0 Abs Immat Gran (auto) 0.06 H Absolute Neuts (auto) 11.1 H Absolute Nucleated RBC 0.000 Nucleated RBC % (auto) 0.0 PT INR D-Dimer High Sensitivty Sodium 144 Potassium 5.4 H D Chloride 110 H Carbon Dioxide 23 Anion Gap 16 BUN 29 H Creatinine 1.29 Estim Creat Clear Calc 80.1 Estimated GFR 58 POC Glucose 297 H 239 H Random Glucose 184 H Calcium 9.5 Magnesium Troponin I High Sens B-Natriuretic Peptide TSH Urine Color Urine Appearance Urine pH Ur Specific [place] Urine Protein Urine Glucose (UA) Urine Ketones Urine Blood Urine Nitrite Ur Leukocyte Esterase Urine RBC Urine WBC Ur Squamous Epith Cells Urine Bacteria Hyaline Casts S. pyogenes GrpA PAYAM 05/26/24 07:22 WBC RBC Hgb Hct MCV MCH MCHC RDW Plt Count MPV Immature Gran % (Auto) Neut % (Auto) Lymph % (Auto) Oliver % (Auto) Eos % (Auto) Baso % (Auto) Lymph # (Auto) Oliver # (Auto) Eos # (Auto) Baso # (Auto) Abs Immat Gran (auto) Absolute Neuts (auto) Absolute Nucleated RBC Nucleated RBC % (auto) PT INR D-Dimer High Sensitivty Sodium Potassium Chloride Carbon Dioxide Anion Gap BUN Creatinine Estim Creat Clear Calc Estimated GFR POC Glucose 148 H Random Glucose Calcium Magnesium Troponin I High Sens B-Natriuretic Peptide TSH Urine Color Urine Appearance Urine pH Ur Specific [place] Urine Protein Urine Glucose (UA) Urine Ketones Urine Blood Urine Nitrite Ur Leukocyte Esterase Urine RBC Urine WBC Ur Squamous Epith Cells Urine Bacteria Hyaline Casts S. pyogenes GrpA PAYAM ECG Interpretation: EKGs in the paper chart but not in expanse. Suggestive of atrial flutter with rapid rate at 156/Min. Another EKG shows sinus rhythm with supraventricular ectopy. In telemetry, he is in sinus rhythm currently. Imaging Radiologist's impression: Impressions Chest X-Ray 05/25/24 08:48 IMPRESSION: 1. Interval development of congestive heart failure, pulmonary edema pattern superimposed on interstitial edema. 2. Interval development of small Left pleural effusion. Assessment and Plan (1) Acute CHF: Status: Acute Chest x-ray reported have interval development of CHF/pulmonary edema. Small pleural effusion. Cardiac BNP slightly high. Empiric diuretics and be used for now. Await echocardiogram. Per outpatient cardiology records, LVEF is 45% and unremarkable exercise stress echocardiogram-at 7.7 Mets Empiric diuretics for now. (2) Atrial flutter with rapid ventricular response: Status: Acute As outpatient, on Multaq. Can stop that and use rather oral amiodarone. Anticoagulation. Currently, he is in sinus rhythm. Plans for outpatient ablation noted. Plan Discussed with Dr. Stout. Procedures Date of Service Date of Service: 05/26/24
[2024-05-26] MEDS: Sodium Zirconium Cyclosilicate 10 GM POWD.PACK PO (10:42)
[2024-05-26] MEDS: Furosemide 40 MG/4 ML VIAL 20 MG IVPUSH (10:43)
[2024-05-26 11:09] LABS: Glucose, Whole Blood 202 mg/dL (60-115)
[2024-05-26] MEDS: Insulin Lispro 100 UNIT/ML 3 ML VIAL SUBCUT (12:20)
--- NOTE | 2024-05-26 12:29 | MHC.CM.PN ---
Pt is independent, no home health services, no DME. HCP form to be completed here and added to chart. PCP confirmed: Dr. Tierney, JEANNIEP: home, self care, CM to follow for DC needs.
[2024-05-26] MEDS: Metoprolol Tartrate 5 MG/5 ML VIAL IVPUSH (12:37)
[2024-05-26] MEDS: 0.9 % Sodium Chloride 500 ML IV (12:37)
[2024-05-26 13:13] LABS: Magnesium 2.4 mg/dL (1.6-2.6)
[2024-05-26 14:10] LABS: Anion Gap 15 (12-20); Blood Urea Nitrogen 26 mg/dL (9-16); Calcium 9.2 mg/dL (8.4-10.2); Carbon Dioxide 23 mmol/L (22-29); Chloride 109 mmol/L (96-108); Creatinine Clr Calc Pharmacy 84.2; Estimated Glomerular Filt Rate > 60; Glucose Random 229 mg/dL (60-115); Potassium 3.7 mmol/L (3.3-5.1); Sodium 143 mmol/L (135-145)
[2024-05-26 15:22] LABS: Hematocrit 47.4 % (42.0-52.0); Hemoglobin 15.5 g/dl (14.0-18.0); Mean Corpuscular HGB Conc 32.7 g/dl (31.0-36.0); Mean Corpuscular Volume 85.6 fL (80.0-98.0); Mean Platelet Volume 10.5 fL (9.4-12.4); Platelet Count 213 X10*3/uL (160-400); Red Blood Count 5.54 X10*6/uL (4.60-5.80); Red Cell Distribution Width 14.1 % (11.0-16.0)
[2024-05-26 15:30] LABS: INTERNATIONAL NORM RATIO 1.3 (0.9-1.1); Prothrombin Time 15.6 SEC (11.1-13.3)
[2024-05-26 15:32] LABS: PTT Heparin Drip 34.8 SEC (53-77.9)
--- NOTE | 2024-05-26 15:57 | P.DS_ITS ---
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 He reports sob that has been persistent x several years. Has followed with cardiology and was diagnosed with afib earlier this year and is scheduled for an ablation next week ([facility]). He has also been following with pcp and was told he performed poorly on PFT but is unsure of diagnosis but was given albuterol inhaler which does not provide much relief. 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 He denies lightheadedness, palpitations, syncope, chest pain. No recent illness. On arrival VSS. However shortly after admission, patient developed tachycardia in the 170s with some diaphoresis and became hypoxic around 88%, placed on 2L maintaining oximetry 95%. HR improved to 120-130 wtih metoprolol 5mg IV x2. Hematology studies unremarkable. Renal function normal. Lytes normal except CO@ 19 and Cl113. Trops flat, BNP 600. CXR shows pulmonary edema superimposed on interstitial edema with pleural effusion. In the ED, given 60mg lasix, lopressor 5mg x2 after repeat EKG reveal atrial flutter with RVR. Pt converted back to NSR, rates 70s. Hospital course The patient presented with New onset symptoms of CHF that has been worsening over the last 3 month with dyspnea and heaviness. CXR and CT scan showed pulmonary edema on interstitial edema with effusions and he was started on IV lasix 40mg daily making fair amount of fluids overnight. Echo was done showing Severe aortic stenosis of severe LV dysfunction and ejection fraction around 20- 25% with Mean gradient across aortic valve was 48 mm Hg. Cardiology recommended transfer to [facility] for Angiogram and AVR surgery. He also presented with Paroxysmal atrial fibrillation/flutter with RVR which converted back and forth more than once primarly with low dose Metoprolol and discontinueing Multaq and starting Amiodarone load. continue xarelto He follows with Dr Wolf at [facility], was scheduled for ablation next . He was also noted to develop worsening Creatinine level from 0.9 on admission to 1.2. continue to monitor. He is on Xarelto ppx for Afib, last dose 05/25 at 9:00 pm. to start Heparin drip instead upon arrival to [facility] and keep it on hold. Discharge plan Transfer to [facility] for evaluation with cardiac angiogram and plan for AVR. accepting Dr Clark Time Attestation Discharge Coordination Time (in mins): 43 Quality: Safe Use of Opioids Does Pt have an Active Cancer Diagnosis on the Problem List?: No Quality: Stroke Does the patient have a stroke diagnosis?: No Physical Exam Vital Signs: Vital Signs: Last Vital Signs Temp 97.2 F 05/26/24 15:35 Pulse 71 05/26/24 15:35 Resp 20 05/26/24 15:35 BP 100/68 05/26/24 15:35 Pulse Ox 92 05/26/24 15:35 O2 Del Method Room Air 05/26/24 15:35 O2 Flow Rate 2 05/26/24 07:50 BMI result Body Mass Index 37.8 Const: Other: Constitutional : Awake, interactive, not in distress Neck : Normal inspection, Supple Cardiovascular : RRR, elevated JVP, trace lower extremity edema, loud systolic murmur Respiratory : good bilateral air entry, no crackles, wheezes or rhonchi Gastrointestinal: soft, lax, Normal bowel sounds, Non tender Skin : Warm, Dry Neurological : Alert & oriented x3, No focal deficit DS: Data Data Completed and Pending Labs on day of discharge: Laboratory Results - last 24 hr 05/25/24 05/25/24 05/25/24 12:57 16:10 16:53 WBC RBC Hgb Hct MCV MCH MCHC RDW Plt Count MPV Immature Gran % (Auto) Neut % (Auto) Lymph % (Auto) [place] % (Auto) Eos % (Auto) Baso % (Auto) Lymph # (Auto) [place] # (Auto) Eos # (Auto) Baso # (Auto) Abs Immat Gran (auto) Absolute Neuts (auto) Absolute Nucleated RBC Nucleated RBC % (auto) PT INR aPTT Heparin Protocol Sodium Potassium Chloride Carbon Dioxide Anion Gap BUN Creatinine Estim Creat Clear Calc Estimated GFR POC Glucose 143 H 178 H Random Glucose Calcium Magnesium 2.0 TSH 1.48 05/25/24 05/26/24 05/26/24 21:19 01:42 06:09 WBC 13.0 H RBC 5.48 Hgb 15.5 Hct 47.2 MCV 86.1 MCH 28.3 MCHC 32.8 RDW 14.0 Plt Count 195 MPV 10.2 Immature Gran % (Auto) 0.5 H Neut % (Auto) 84.9 H Lymph % (Auto) 5.4 L [place] % (Auto) 8.7 Eos % (Auto) 0.2 Baso % (Auto) 0.3 Lymph # (Auto) 0.7 L [place] # (Auto) 1.1 Eos # (Auto) 0.0 Baso # (Auto) 0.0 Abs Immat Gran (auto) 0.06 H Absolute Neuts (auto) 11.1 H Absolute Nucleated RBC 0.000 Nucleated RBC % (auto) 0.0 PT INR aPTT Heparin Protocol Sodium 144 Potassium 5.4 H D Chloride 110 H Carbon Dioxide 23 Anion Gap 16 BUN 29 H Creatinine 1.29 Estim Creat Clear Calc 80.1 Estimated GFR 58 POC Glucose 297 H 239 H Random Glucose 184 H Calcium 9.5 Magnesium 2.4 TSH 05/26/24 05/26/24 05/26/24 07:22 11:05 13:32 WBC RBC Hgb Hct MCV MCH MCHC RDW Plt Count MPV Immature Gran % (Auto) Neut % (Auto) Lymph % (Auto) [place] % (Auto) Eos % (Auto) Baso % (Auto) Lymph # (Auto) [place] # (Auto) Eos # (Auto) Baso # (Auto) Abs Immat Gran (auto) Absolute Neuts (auto) Absolute Nucleated RBC Nucleated RBC % (auto) PT INR aPTT Heparin Protocol Sodium 143 Potassium 3.7 D Chloride 109 H Carbon Dioxide 23 Anion Gap 15 BUN 26 H Creatinine 1.23 Estim Creat Clear Calc 84.2 Estimated GFR > 60 POC Glucose 148 H 202 H Random Glucose 229 H Calcium 9.2 Magnesium TSH 05/26/24 15:00 WBC 17.0 H RBC 5.54 Hgb 15.5 Hct 47.4 MCV 85.6 MCH 28.0 MCHC 32.7 RDW 14.1 Plt Count 213 MPV 10.5 Immature Gran % (Auto) Neut % (Auto) Lymph % (Auto) [place] % (Auto) Eos % (Auto) Baso % (Auto) Lymph # (Auto) [place] # (Auto) Eos # (Auto) Baso # (Auto) Abs Immat Gran (auto) Absolute Neuts (auto) Absolute Nucleated RBC 0.000 Nucleated RBC % (auto) 0.0 PT 15.6 H INR 1.3 H aPTT Heparin Protocol 34.8 L Sodium Potassium Chloride Carbon Dioxide Anion Gap BUN Creatinine Estim Creat Clear Calc Estimated GFR POC Glucose Random Glucose Calcium Magnesium TSH Imaging Chest x-ray: Radiologist's impression: ITS Impressions Chest X-Ray 05/25/24 08:48 IMPRESSION: 1. Interval development of congestive heart failure, pulmonary edema pattern superimposed on interstitial edema. 2. Interval development of small Left pleural effusion. Chest CT 05/26/24 11:47 IMPRESSION: Findings are consistent with CHF with interstitial edema and bilateral pleural effusions. Fleischner guidelines were followed. Discharge Plan Discharge Anticipated Discharge Date/Time: 05/26/24 15:52 Patient Disposition: Xfer Acute Care Hospital Discharge Diagnosis: Severe aortic stenosis HEart failure exacerbation Referrals: Grover Tierney DO, MD [Primary Care Provider] - 1 Week Discharge Medications: New amiodarone 200 mg Tablet 400 mg PO BID Qty: 1 0RF Continued metformin 500 mg tablet extended release 24 hr 500 mg PO DAILY albuterol sulfate 90 mcg/actuation HFA aerosol inhaler 2 puff inhalation Q6H PRN (Reason: shortness of breath or wheezing) Qty: 8.5 0RF atorvastatin 40 mg tablet 40 mg PO DAILY insulin glargine [Lantus Solostar U-100 Insulin] 100 unit/mL (3 mL) insulin pen 58 unit subcut BEDTIME Jardiance 10 mg tablet 10 mg PO DAILY Held Xarelto 20 mg tablet 20 mg PO BEDTIME Hold Instructions: For impending surgery losartan-hydrochlorothiazide 50-12.5 mg tablet 1 tab PO DAILY Hold Instructions: ROMULO Discontinued Multaq 400 mg tablet 400 mg PO BID Discharge Orders: Discharge Order (Routine); Ordered 05/26/24 Ordered By: Levy Stout Diet: Low salt diet Activity on Discharge: As tolerated Stand Alone Forms: Patient Portal Discharge page Print Language: Ukrainian Care Plan Goals: Transfer to [facility] for angiogram and surgical intervention for narrowed Aortic valve. Health Concerns: Read below Plan of Treatment: Read below Assessment: Read below
--- NOTE | 2024-05-26 16:02 | MHC.CM.PN ---
PT TRANSFERRING TO [facility]
== END 2024-05-26 17:29 | disposition short-term general hospital (02) | DRG 291 ==
LOC: HO.ED 15:06 → HO.EDOVER 15:48 → HO.IMC 05-26 00:04
PROVIDERS: Physician Assistant; Admitting Provider Physician Assistant; Emergency Provider Emergency Medicine; PCP Internal Medicine; Visit Provider Student in an Organized Health Care Education/Training Program
DX: I11.0 Hypertensive heart disease with heart failure (principal); I50.41 Acute combined systolic (congestive) and diastolic (congestive) heart failure; I48.92 Unspecified atrial flutter; E78.5 Hyperlipidemia, unspecified; E11.9 Type 2 diabetes mellitus without complications; G89.4 Chronic pain syndrome; I48.0 Paroxysmal atrial fibrillation; I35.0 Nonrheumatic aortic (valve) stenosis; Z20.822 Contact with and (suspected) exposure to COVID-19; Z79.4 Long term (current) use of insulin; Z79.01 Long term (current) use of anticoagulants; Z79.84 Long term (current) use of oral hypoglycemic drugs; Z79.899 Other long term (current) drug therapy
CPT/HCPCS: 0241U; 36415; 71046; 71250; 80048; 80053; 81001; 82947; 83735; 83880; 84443; 84484; 85025; 85027; 85379; 85610; 85730; 87651; 93005; 93306; 94640; 99285; J1940; J2919; Q9957

== ENCOUNTER → 2024-05-25 08:32 | Outpatient (BNV) | payer OTHER, SELFPAY | PROVIDERS: Admitting Provider Physician Assistant; Emergency Provider Emergency Medicine; PCP Internal Medicine; Visit Provider Internal Medicine | DX: I45.81 Long QT syndrome (principal) | CPT/HCPCS: 93010 ==

== ENCOUNTER 2024-05-25 15:37 | Outpatient (BNV) | payer OTHER, SELFPAY | END 2024-05-26 07:00 | PROVIDERS: Admitting Provider Physician Assistant; Emergency Provider Emergency Medicine; PCP Internal Medicine; Visit Provider Internal Medicine | DX: I50.9 Heart failure, unspecified (principal) | CPT/HCPCS: 93010; 93306 ==

== ENCOUNTER → 2024-05-25 15:37 | Outpatient (BNV) | payer OTHER, SELFPAY | PROVIDERS: Admitting Provider Physician Assistant; Emergency Provider Emergency Medicine; PCP Internal Medicine; Visit Provider Physician Assistant | DX: I11.0 Hypertensive heart disease with heart failure (principal); I50.40 Unspecified combined systolic (congestive) and diastolic (congestive) heart failure; I48.92 Unspecified atrial flutter; I35.0 Nonrheumatic aortic (valve) stenosis | CPT/HCPCS: 99223; 99239 ==

== ENCOUNTER → 2024-05-25 15:37 | Outpatient (BNV) | payer OTHER, SELFPAY | PROVIDERS: Admitting Provider Physician Assistant; Emergency Provider Emergency Medicine; PCP Internal Medicine; Visit Provider Internal Medicine | DX: I50.9 Heart failure, unspecified (principal); I48.92 Unspecified atrial flutter | CPT/HCPCS: 99223 ==